=== PATIENT | male | born 1955 | race Caucasian/White ===

== ENCOUNTER 2017-07-16 11:10 | Emergency (ER) | payer OTHER ==
[2017-07-16 12:26] LABS: Absolute Lymphocytes (CBC) 1.3 K/uL (0.7-4.9); Absolute Monocytes 0.7 K/uL (0.1-1.3); Absolute Neutrophil 6.9 K/uL (1.8-8.0); Basophils % 0.6 % (0-1.3); Eosinophils % 0.4 % (0-4.4); Hematocrit 41.9 % (39.6-49.0); Lymphocytes % 14.2 % (15.3-44.8); MCH 27.9 pg (27.0-35.0); MCV 84.7 fL (80-100); MPV 8.4 fL (7.6-11.3); Monocytes % 7.6 % (3.3-12.3); RBC Red Blood Cell Count 4.95 M/uL (4.33-5.43)
--- NOTE | 2017-07-16 12:54 | RAD REPORT ---
EXAM DESCRIPTION: VAS - Extremity Venous Uni Ltd - 07/16/2017 12:32 pm CLINICAL HISTORY: Leg swelling and edema. COMPARISON: None. FINDINGS: Right lower extremity venous system was interrogated with Doppler technique. Normal flow, compressibility and augmentation was noted. There is no DVT present. IMPRESSION: No evidence of right lower extremity deep venous thrombosis.
[2017-07-16 13:01] LABS: Potassium 4.3 mEq/L (3.6-5.0)
--- NOTE | 2017-07-16 14:20 | ER ---
Nurse's Notes [facility] Name: Maykel Sykes Age: 61 yrs Sex: Male : 1955 Arrival Date: 07/16/2017 Time: 11:17 Bed 28 Private MD: None, None Diagnosis: Cellulitis of right lower limb Presentation: 07/16 11:35 Presenting complaint: Patient states: RIGHT lower leg redness, pain, and swelling x 3 hb days. Transition of care: Urgent Care. Onset of symptoms was July 13, 2017. Initial Sepsis Screen: Does the patient meet any 2 criteria? No. Patient's initial sepsis screen is negative. Does the patient have a suspected source of infection? No. Patient's initial sepsis screen is negative. Care prior to arrival: None. 11:35 Method Of Arrival: Ambulatory hb 11:35 Acuity: MEHDI 3 hb Historical: - Allergies: 11:38 No Known Allergies; hb - Home Meds: 11:38 None [Active]; hb - PMHx: 11:38 None; hb - PSHx: 11:38 None; hb - Immunization history:: Adult Immunizations up to date. - Social history:: Smoking status: Patient/guardian denies using tobacco. - Family history:: not pertinent. - Hospitalizations: : No recent hospitalization is reported. Screenin:09 Abuse screen: Denies threats or abuse. Denies injuries from another. Nutritional aj screening: No deficits noted. Tuberculosis screening: No symptoms or risk factors identified. Fall Risk None identified. Assessment: 12:09 General: Appears in no apparent distress. comfortable, Behavior is calm, cooperative, aj appropriate for age. Pain: Complains of pain in right calf and medial aspect of right calf. Neuro: Level of Consciousness is awake, alert, obeys commands, Oriented to person, place, time, situation, Appropriate for age. Respiratory: Airway is patent Respiratory effort is even, unlabored, Respiratory pattern is regular, symmetrical. Derm: Skin is intact, is healthy with good turgor, Skin is pink, warm \T\ dry. normal, Redness and swelling to posterior and medial right lower leg. 14:40 Reassessment: Patient appears in no apparent distress at this time. No changes from aj previously documented assessment. Patient and/or family updated on plan of care and expected duration. Pain level reassessed. Patient is alert, oriented x 3, equal unlabored respirations, skin warm/dry/pink. Vital Signs: 11:37 BP 196 / 96; Pulse 87; Resp 16; Temp 98; Pulse Ox 100% on R/A; Weight 145.15 kg; Height hb 6 ft. (182.88 cm); Pain 2/10; 13:16 BP 134 / 83; Pulse 77; Resp 18; Pulse Ox 98% on R/A; aj 14:40 BP 138 / 66; Pulse 76; Resp 17; Pulse Ox 99% on R/A; aj 11:37 Body Mass Index 43.40 (145.15 kg, 182.88 cm) hb ED Course: 11:17 Patient arrived in ED. mr 11:17 None, None is Private Physician. mr 11:37 Triage completed. hb 11:38 Arm band placed on left wrist. hb 11:43 Morelia Aguilar RN is Primary Nurse. aj 11:43 Slava Dumont MD is Attending Physician. rn 12:09 Patient has correct armband on for positive identification. Placed in gown. Bed in low aj position. Call light in reach. Side rails up X 1. Pulse ox on. NIBP on. 12:09 Inserted saline lock: 20 gauge in left forearm, using aseptic technique. Blood aj collected. 12:12 Extremity Venous Uni Ltd US In Process Unspecified. EDMS 12:15 Note: us done port. hr 14:40 No provider procedures requiring assistance completed. IV discontinued, intact, aj bleeding controlled, No redness/swelling at site. Pressure dressing applied. Administered Medications: No medications were administered Outcome: 14:20 Discharge ordered by . rn 14:40 Discharged to home ambulatory. aj 14:40 Condition: good 14:40 Discharge instructions given to patient, Instructed on discharge instructions, follow up and referral plans. medication usage, Demonstrated understanding of instructions, follow-up care, medications, Prescriptions given X 2. 14:41 Patient left the ED. aj Signatures: Dispatcher [employer] EDMS Morelia Aguilar, Jessy Terrazas RN Roxanna Flores hr Slava Dumont MD MD rn Baxter, Heather, RN RN hb Corrections: (The following items were deleted from the chart) 12:11 12:09 Inserted saline lock: 20 gauge in left forearm, using aseptic technique. aj aj
--- NOTE | 2017-07-16 14:20 | EDPHYS ---
Physician Documentation [facility] Name: Maykel Sykes Age: 61 yrs Sex: Male : 1955 Arrival Date: 07/16/2017 Time: 11:17 Bed 28 Private MD: None, None ED Physician Slava Dumont HPI: 07/16 11:53 This 61 yrs old Male presents to ER via Ambulatory with complaints of Leg rn Swelling. 11:53 The patient presents with cellulitis of the right leg. Description: erythematous, rn swollen, warm. Onset: The symptoms/episode began/occurred 2 day(s) ago. Possible cause(s): unknown. Modifying factors: the symptoms are alleviated by nothing, the symptoms are aggravated by walking. The patient has not experienced similar symptoms in the past. The patient has not recently seen a physician. Historical: - Allergies: 11:38 No Known Allergies; hb - Home Meds: 11:38 None [Active]; hb - PMHx: 11:38 None; hb - PSHx: 11:38 None; hb - Immunization history:: Adult Immunizations up to date. - Social history:: Smoking status: Patient/guardian denies using tobacco. - Family history:: not pertinent. - Hospitalizations: : No recent hospitalization is reported. ROS: 11:53 Constitutional: + chills, no fever Eyes: Negative for injury, pain, redness, and international sales representative, Neck: Negative for injury, pain, and swelling, Cardiovascular: Negative for chest pain, palpitations, and edema, Respiratory: Negative for shortness of breath, cough, wheezing, and pleuritic chest pain, Abdomen/GI: Negative for abdominal pain, nausea, vomiting, diarrhea, and constipation, MS/Extremity: + mild swelling and redness to RLE Skin: + redness and warmth of RLE Neuro: Negative for headache, weakness, numbness, tingling, and seizure. Exam: 11:53 Constitutional: This is a well developed, well nourished patient who is awake, alert, rn and in no acute distress. Skin: + erythema and warmth of RLE with raised areas, no streaking, no fluctuance, isolated to right medial distal LE. MS/ Extremity: Pulses equal, no cyanosis. Neurovascular intact. Full, normal range of motion. RLE > circumference compared to LLE Vital Signs: 11:37 BP 196 / 96; Pulse 87; Resp 16; Temp 98; Pulse Ox 100% on R/A; Weight 145.15 kg; Height hb 6 ft. (182.88 cm); Pain 2/10; 13:16 BP 134 / 83; Pulse 77; Resp 18; Pulse Ox 98% on R/A; aj 14:40 BP 138 / 66; Pulse 76; Resp 17; Pulse Ox 99% on R/A; aj 11:37 Body Mass Index 43.40 (145.15 kg, 182.88 cm) hb MDM: 11:43 Patient medically screened. rn 14:19 Differential diagnosis: cellulitis. Data reviewed: vital signs, nurses notes, lab test rn result(s), radiologic studies, doppler, and as a result, I will discharge patient. Counseling: I had a detailed discussion with the patient and/or guardian regarding: the historical points, exam findings, and any diagnostic results supporting the discharge/admit diagnosis, lab results, radiology results, the need for outpatient follow up, to return to the emergency department if symptoms worsen or persist or if there are any questions or concerns that arise at home. Special discussion: I discussed with the patient/guardian in detail that at this point there is no indication for admission to the hospital. It is understood, however, that if the symptoms persist or worsen the patient needs to return immediately for re-evaluation. 07/16 11:53 Order name: CBC with Diff; Complete Time: 13:03 rn 07/16 11:53 Order name: Basic Metabolic Panel rn 07/16 11:53 Order name: IV Start; Complete Time: 12:12 rn 07/16 11:53 Order name: Procalcitonin; Complete Time: 13:26 rn 07/16 11:53 Order name: Extremity Venous Uni Ltd ; Complete Time: 13:03 rn 07/16 11:53 Order name: Blood Culture Adult (2) rn Administered Medications: No medications were administered Disposition: 07/16/17 14:20 Discharged to Home. Impression: Cellulitis of right lower limb. - Condition is Stable. - Discharge Instructions: Cellulitis. - Prescriptions for Keflex 500 mg Oral Capsule - take 1 capsule by ORAL route every 12 hours for 10 days; 20 capsule. Bactrim DS 800- 160 mg Oral Tablet - take 1 tablet by ORAL route every 12 hours for 10 days; 20 tablet. - Medication Reconciliation Form, Thank You Letter, Antibiotic Education, Prescription Opioid Use form. - Follow up: Private Physician; When: As needed; Reason: Recheck today's complaints, Re-evaluation by your physician. - Problem is new. - Symptoms have improved. Signatures: Dispatcher [employer] EDMorelia Mandel RN RN aj Nieto, Roman, MD MD rn Baxter, Heather, RN RN hb Corrections: (The following items were deleted from the chart) 14:41 14:20 07/16/2017 14:20 Discharged to Home. Impression: Cellulitis of right lower limb. aj Condition is Stable. Forms are Medication Reconciliation Form, Thank You Letter, Antibiotic Education, Prescription Opioid Use. Follow up: Private Physician; When: As needed; Reason: Recheck today's complaints, Re-evaluation by your physician. Problem is new. Symptoms have improved. rn
== END 2017-07-16 14:41 | disposition home or self-care (01) ==
LOC: ER 11:10
DX: L03.115 Cellulitis of right lower limb (principal)
CPT/HCPCS: 36415; 80048; 84145; 85025; 87040; 93971; 99284

== ENCOUNTER 2024-04-10 12:34 | Emergency (ER) | payer OTHER ==
--- NOTE | 2024-04-10 13:02 | ER ---
Nurse's Notes [facility] Name: Maykel Sykes Age: 68 yrs Sex: Male : 1955 Arrival Date: 04/10/2024 Time: 12:34 Bed DX3 Private MD: Diagnosis: Uvulitis Presentation: 04/10 13:06 Chief complaint: Patient states: sinus drainage down throat x 1 week. Patient states it me1 affects his speech and is causing difficulty swallowing. Coronavirus screen: Vaccine status: Patient reports receiving the 2nd dose of the covid vaccine. Ebola Screen: No symptoms or risks identified at this time. Initial Sepsis Screen: Does the patient meet any 2 criteria? No. Patient's initial sepsis screen is negative. Risk Assessment: Do you want to hurt yourself or someone else? Patient reports no desire to harm self or others. Onset of symptoms was April 03, 2024. 13:06 Method Of Arrival: Ambulatory tn1 13:06 Acuity: MEHDI 4 me1 13:24 Initial Sepsis Screen: Does the patient have a suspected source of infection? No. me1 Patient's initial sepsis screen is negative. Triage Assessment: 13:31 Respiratory: the patient has mild shortness of breath. me1 Historical: - Allergies: 13:08 No Known Allergies; me1 - Home Meds: 13:08 None [Active]; me1 - PMHx: 13:08 None; me1 - PSHx: 13:08 None; me1 - Immunization history:: Adult Immunizations up to date. - Infectious Disease History:: Denies. - Social history:: Smoking status: Patient denies any tobacco usage or history of. Screenin:[address] [facility] ED Fall Risk Assessment (Adult) History of falling in the last 3 months, me1 including since admission No falls in past 3 months (0 pts) Confusion or Disorientation No (0 pts) Intoxicated or Sedated No (0 pts) Impaired Gait No (0 pts) Mobility Assist Device Used No (0 pt) Altered Elimination No (0 pt) Score/Fall Risk Level 0 - 2 = Low Risk Maintained a safe environment, Provided non-skid footwear, Hourly rounding (assess needs \T\ fall precautionary measures) done. Abuse screen: Denies threats or abuse. Nutritional screening: No deficits noted. Tuberculosis screening: No symptoms or risk factors identified. Assessment: 13:25 General: Appears in no apparent distress. comfortable, obese, well groomed, well me1 developed, Behavior is calm, cooperative, appropriate for age, Reports sinus drainage down throat x 1 week. Patient states it affects his speech and is causing difficulty swallowing. Pain: Denies pain. Neuro: Level of Consciousness is awake, alert, obeys commands, Oriented to person, place, time, situation, Appropriate for age. Cardiovascular: Patient's skin is warm and dry. Cardiovascular: Rhythm is regular. Respiratory: Airway is patent Respiratory effort is even, unlabored, Respiratory pattern is regular, symmetrical, Breath sounds are clear. GI: No signs and/or symptoms were reported involving the gastrointestinal system. : No signs and/or symptoms were reported regarding the genitourinary system. EENT: Throat is pink Reports sinus drainage down throat x 1 week. Patient states it affects his speech and is causing difficulty swallowing. Derm: Skin is intact, is healthy with good turgor, Skin is pink, warm \T\ dry. Musculoskeletal: No signs and/or symptoms reported regarding the musculoskeletal system. Vital Signs: 13:06 BP 171 / 77; Pulse 66; Resp 17; Temp 98.2; Pulse Ox 96% ; Weight 135.17 kg; Height 6 me1 ft. 0 in. ; Pain 0/10; 13:27 BP 164 / 71; Pulse 65; Resp 16; Temp 98.3; Pulse Ox 98% ; me1 13:06 Body Mass Index 40.42 (135.17 kg, 182.88 cm) me1 13:06 Pain Scale: Adult me1 ED Course: 12:38 Patient arrived in ED. im 12:44 Andrea Joseph DO is Attending Physician. ms3 13:00 Triage completed. me1 13:01 Yvonne Osorio MD is Referral Physician. ms3 13:01 Luisa Bojorquez MD is Referral Physician. ms3 13:08 Arm band placed on Patient placed in waiting room. me1 13:21 Rosario Drew, DANNY is Primary Nurse. me1 13:25 Patient has correct armband on for positive identification. Provided Education on: POC. me1 Verbalized understanding.. 13:25 No provider procedures requiring assistance completed. Patient did not have IV access me1 during this emergency room visit. Administered Medications: 13:24 Drug: Dexamethasone IM 10 mg IM once Route: IM; Site: left deltoid; tn1 13:27 Follow up: Response: No adverse reaction me1 Medication: 13:25 VIS not applicable for this client. [facility] [place] Outcome: 13: Discharge ordered by . ms3 13:30 Discharged to home ambulatory, me1 13:30 Condition: stable 13:30 Discharge instructions given to patient, Instructed on discharge instructions, follow up and referral plans. medication usage, Demonstrated understanding of instructions, follow-up care, medications, Prescriptions given X 1, 13:31 Patient left the ED. [facility] Signatures: Andrea Joseph DO DO ms3 Jennifer Luna Michelle, RN RN me1 Corrections: (The following items were deleted from the chart) 13:02 13: Arm band placed on Patient placed in an exam room, [place] [id number] 13: 12:59 Chief complaint: Patient states: c/o headache with blurry vision left eye since tn1 Sunday. Pain 8/10 [facility] 13: 12:59 Coronavirus screen: Vaccine status: Patient reports being unvaccinated. [place] [id number] 13: 12:59 Ebola Screen: No symptoms or risks identified at this time. [place] [id number] 13: 12:59 Initial Sepsis Screen: Does the patient meet any 2 criteria? No. Patient's [facility] initial sepsis screen is negative. Does the patient have a suspected source of infection? No. Patient's initial sepsis screen is negative. [facility] 13: 12:59 Risk Assessment: Do you want to hurt yourself or someone else? Patient reports no [facility] desire to harm self or others. [facility] 13: 12:59 Onset of symptoms was April 08, 2024 [place] [id number] 13: 12:59 Method Of Arrival: Ambulatory [place] [id number] 13: 12:59 Pulse 68bpm; Resp 16bpm; Pulse Ox 100%; Temp 98.4F; 100.7 kg; Height 6 ft.; BMI: tn1 30.1; Pain 8/10, Adult; [facility] 13: 12:59 Acuity: MEHDI 3 [place] [id number] 13:01 Allergies: Naproxen Sodium; [place] [id number] 13:01 PMHx: None; [place] [id number] : 13:01 PSHx: clavicle fracture; me1 me1 13:01 Immunization history: Adult Immunizations up to date, me1 me1 13:01 Infectious Disease History: Denies. me1 me1 13: 13:01 Social history: Smoking status: Patient reports the use of cigarette tobacco me1 products, smokes one-half pack cigarettes per day, me1 13:06 Chief complaint: Patient states: sinus drainage down throat x 1 week. Patient me1 states it affects his speech and is causing difficulty swallowing me1
--- NOTE | 2024-04-10 13:02 | EDPHYS ---
Physician Documentation [facility] Name: Maykel Sykes Age: 68 yrs Sex: Male : 1955 Arrival Date: 04/10/2024 Time: 12:34 Bed DX3 Private MD: ED Physician Andrea Joseph HPI: 04/10 13:04 This 68 yrs old Male presents to ER via Ambulatory with complaints of Difficulty ms3 Swallowing, Shortness Of Breath, Drainage - of sinus. 13:04 68-year-old male with no past medical history presents to the emergency department for ms3 sinus drainage that is been ongoing since COVRI. Patient states that has become worse over the last week. He denies nausea, vomiting, fevers, chills. Patient denies pain. Patient states it feels as if food is getting stuck in the mucus in the back of his throat.. Historical: - Allergies: 13:08 No Known Allergies; me1 - Home Meds: 13:08 None [Active]; me1 - PMHx: 13:08 None; me1 - PSHx: 13:08 None; me1 - Immunization history:: Adult Immunizations up to date. - Infectious Disease History:: Denies. - Social history:: Smoking status: Patient denies any tobacco usage or history of. ROS: 13:04 Constitutional: Negative for fever, and chills. Cardiovascular: Negative for chest ms3 pain, and palpitations. Respiratory: Negative for shortness of breath, cough, wheezing, and pleuritic chest pain, Abdomen/GI: Negative for abdominal pain, nausea, vomiting, diarrhea, and constipation, MS/Extremity: Negative for injury and deformity, 13:04 ENT: Positive for sinus congestion, Exam: 13:04 Constitutional: This is a well developed, well nourished patient who is awake, alert, ms3 and in no acute distress. Cardiovascular: Regular rate and rhythm with a normal S1 and S2. No gallops, murmurs, or rubs. Normal PMI, no JVD. No pulse deficits. Respiratory: Lungs have equal breath sounds bilaterally, clear to auscultation and percussion. No rales, rhonchi or wheezes noted. No increased work of breathing, no retractions or nasal flaring. Abdomen/GI: Soft, non-tender, with normal bowel sounds. No distension or tympany. No guarding or rebound. No evidence of tenderness throughout. Skin: Warm, dry with normal turgor. Normal color with no rashes, no lesions, and no evidence of cellulitis. 13:04 ENT: Posterior pharynx: Airway: normal, no evidence of obstruction, Uvula: edematous, erythema, erythema, that is moderate, exudate, is not appreciated, peritonsillar mass, is not appreciated, Vital Signs: 13:06 BP 171 / 77; Pulse 66; Resp 17; Temp 98.2; Pulse Ox 96% ; Weight 135.17 kg; Height 6 me1 ft. 0 in. ; Pain 0/10; 13:27 BP 164 / 71; Pulse 65; Resp 16; Temp 98.3; Pulse Ox 98% ; me1 13:06 Body Mass Index 40.42 (135.17 kg, 182.88 cm) me1 13:06 Pain Scale: Adult me1 MDM: 13:00 Medical Screening Exam initiated ms3 13:04 Differential diagnosis: upper respiratory infection, uvulitis, viral syndrome. Data ms3 reviewed: vital signs, nurses notes, and as a result, I will discharge patient. I considered the following discharge prescriptions or medication management in the emergency department Medications were administered in the Emergency Department. See MAR. Historians other than the Patient: Spouse/Significant Other: Patient's . Counseling: I had a detailed discussion with the patient and/or guardian regarding the historical points, exam findings, and any diagnostic results supporting the discharge/admit diagnosis, the need for outpatient follow up, to return to the emergency department if symptoms worsen or persist or if there are any questions or concerns that arise at home. Special discussion: I discussed with the patient/guardian in detail that at this point there is no indication for admission to the hospital. It is understood, however, that if the symptoms persist or worsen the patient needs to return immediately for re-evaluation. ED course: Discussed physical exam findings with patient and his . Patient given Decadron in the emergency department. Patient given prescription for amoxicillin for uvulitis. Patient to follow-up with Dr. Bojorquez or Dr. Osorio in 2 to 3 days. Patient understands agrees with plan. All questions were answered. Patient is alert and orient x 4, no apparent distress, nontoxic-appearing, speaking full sentences. Return precautions discussed include worsening symptoms, or any other concerns.. Administered Medications: 13:24 Drug: Dexamethasone IM 10 mg IM once Route: IM; Site: left deltoid; me1 13:27 Follow up: Response: No adverse reaction me1 Disposition Summary: 04/10/24 13:01 Discharge Ordered Notes: Location: Home ms3 Condition: Stable ms3 Diagnosis - Uvulitis ms3 Followup: ms3 - With: Yvonne Osorio MD - When: 2 - 3 days - Reason: Recheck today's complaints Followup: ms3 - With: Luisa Bojorquez MD - When: 2 - 3 days - Reason: Recheck today's complaints Discharge Instructions: - Discharge Summary Sheet ms3 - Uvulitis ms3 Forms: - Medication Reconciliation Form ms3 - Antibiotic Education ms3 - Prescription Opioid Use ms3 - Patient Portal Instructions ms3 - Leadership Thank You Letter ms3 Prescriptions: - amoxicillin 500 mg Oral capsule - take 1 capsule ORAL route every 12 hours; 14 capsule; Refills: 0, Product ms3 Selection Permitted Signatures: Andrea Joseph DO DO ms3 Rosario Drew RN RN me1 Corrections: (The following items were deleted from the chart) 13:03 13:01 Allergies: Naproxen Sodium; me1 me1 13:03 13:01 PMHx: None; me1 me1 13:03 13:01 PSHx: clavicle fracture; me1 me1 13:03 13:01 Immunization history: Adult Immunizations up to date, me1 me1 13:03 13:01 Infectious Disease History: Denies. me1 me1 13:03 13:01 Social history: Smoking status: Patient reports the use of cigarette tobacco me1 products, smokes one-half pack cigarettes per day, me1
[2024-04-10] MEDS ORDERED: dexAMETHasone 10 MG/ML VIAL ONE (13:22)
[2024-04-10 13:36] VITALS: BP 164/71; TEMP 98.3; O2SAT 98
== END 2024-04-10 13:31 | disposition home or self-care (01) ==
LOC: ER 12:34
DX: K12.2 Cellulitis and abscess of mouth (principal)
CPT/HCPCS: 96372; 99284; J1100

== ENCOUNTER 2024-04-11 15:44 | Emergency (ER) | payer OTHER ==
[2024-04-11 17:03] LABS: Absolute Basophils 0.1 K/uL (0-0.5); Absolute Lymphocytes (CBC) 1.8 K/uL (0.7-4.9); Absolute Monocytes 0.7 K/uL (0.1-1.3); Absolute Neutrophil 9.1 K/uL (1.8-8.0); Basophils % 0.7 % (0-1.3); Eosinophils % 0.2 % (0-4.4); Hematocrit 41.3 % (39.6-49.0); Hemoglobin 14.5 g/dL (13.6-17.9); Lymphocytes % 15.6 % (15.3-44.8); MCH 29.5 pg (27.0-35.0); MCHC 35.1 g/dL (32.0-36.0); MCV 83.9 fL (80-100); MPV 7.9 fL (7.6-11.3); Monocytes % 6.2 % (3.3-12.3); Neutrophils % 77.3 % (41.7-73.7); Platelets 245 thou/uL (152-406); RBC Red Blood Cell Count 4.93 M/uL (4.33-5.43); Red Cell Distribution Width 13.7 % (12.1-15.2)
[2024-04-11] MEDS ORDERED: CEFTRIAXONE 2000 MG/VIAL ONE (17:18)
[2024-04-11] MEDS ORDERED: MAGNES/ALUMIN/SIMET 30ML UCUP ONE (17:18)
[2024-04-11] MEDS ORDERED: dexAMETHasone 10 MG/ML VIAL ONE ×2 (17:18→19:07)
[2024-04-11] MEDS ORDERED: NA CHLORIDE 0.9% 100 ML ONE (17:19)
[2024-04-11] MEDS ORDERED: CLINDAMYCIN 900MG/D5W 900 MG/50 ML IVPB IV ONE (17:19)
[2024-04-11] MEDS ORDERED: NA CHLORIDE 0.9% 1,000 ML ONE (17:19)
[2024-04-11] MEDS ORDERED: FAMOTIDINE 20 MG/2 ML VIAL IV ONE (17:19)
[2024-04-11] MEDS ORDERED: LIDOCAINE VISCOUS 2% 10ML ORAL SOLN ONE (17:19)
[2024-04-11 17:20] LABS: Albumin 3.9 g/dL (3.4-5.0); Anion Gap 8.6 mEq/L (5.0-15.0); Bilirubin Total 0.6 mg/dL (0.2-1.0); Globulin 4.1 g/dL (2.3-3.5); Potassium 3.6 mEq/L (3.5-5.1)
[2024-04-11 17:24] LABS: SARS-CoV-2 Antigen CONTROL BLUE LINE VIS/BG OK; SARS-CoV-2 Antigen Rapid Res Negative (Negative)
[2024-04-11 17:39] LABS: Monoscreen NEG (NEG)
--- NOTE | 2024-04-11 17:51 | RAD REPORT ---
Procedure: Chest Pa And Lat (2 Views) HISTORY: Cough COMPARISON: none FINDINGS: The lungs appear clear of acute infiltrate. No significant pleural effusion noted. The heart is normal size. IMPRESSION: No acute abnormality is displayed.
--- NOTE | 2024-04-11 17:59 | RAD REPORT ---
EXAM: Soft Tissue Neck W/Contr INDICATION: Neck pain. Neck swelling TECHNIQUE: Helical CT examination of the neck orll212 cc Isovue-300 IV contrast. Sagittal and coronal reformations were generated. This exam was performed according to our departmental dose-optimization program, which includes automated exposure control, adjustment of the mA and/or kV according to patient size and/or use of iterative reconstruction technique. COMPARISON: None. FINDINGS: Mild enlargement of the uvula. No abscess seen. The remainder of the pharynx, larynx and subglottic trachea are unremarkable Parotid, submandibular and thyroid glands appear normal. No lymphadenopathy seen. No fluid within the visualized sinuses/mastoids. IMPRESSION: Mild enlargement of the uvula may indicate mild inflammation
--- NOTE | 2024-04-11 18:23 | EDPHYS ---
Physician Documentation [facility] Name: Maykel Sykes Age: 68 yrs Sex: Male : 1955 Arrival Date: 04/11/2024 Time: 15:44 Bed 6 Private MD: ED Physician Aravind Chaney HPI: 04/11 16:28 This 68 yrs old Male presents to ER via Ambulatory with complaints of Sinus sylvain problem, Difficulty Swallowing. 16:28 The patient presents with sore throat. The patient describes throat pain as burning. sylvain Severity of symptoms: At their worst the symptoms were mild, in the emergency department the symptoms are unchanged. Historical: - Allergies: 16:03 No Known Allergies; cm10 - Home Meds: 16:03 None [Active]; cm10 - PMHx: 16:03 Sleep apnea; cm10 - PSHx: 16:03 None; cm10 - Immunization history:: Adult Immunizations up to date. - Infectious Disease History:: Denies. - Social history:: Smoking status: unknown. ROS: 16:41 Constitutional: Negative for fever, chills, and weight loss, Eyes: Negative for injury, sylvain pain, redness, and discharge, Neck: Negative for injury, pain, and swelling, Cardiovascular: Negative for chest pain, palpitations, and edema, Abdomen/GI: Negative for abdominal pain, nausea, vomiting, diarrhea, and constipation, Back: Negative for injury and pain, : Negative for injury, bleeding, discharge, and swelling, MS/Extremity: Negative for injury and deformity, Skin: Negative for injury, rash, and discoloration, Neuro: Negative for headache, weakness, numbness, tingling, and seizure, Psych: Negative for depression, anxiety, suicide ideation, homicidal ideation, and hallucinations, Allergy/Immunology: Negative for hives, rash, and allergies, Endocrine: Negative for neck swelling, polydipsia, polyuria, polyphagia, and marked weight changes, Hematologic/Lymphatic: Negative for swollen nodes, abnormal bleeding, and unusual bruising, 16:41 ENT: Positive for nasal discharge, rhinorrhea, sinus congestion, sore throat, Exam: 16:41 Constitutional: This is a well developed, well nourished patient who is awake, alert, sylvain and in no acute distress. Head/Face: Normocephalic, atraumatic. Eyes: Pupils equal round and reactive to light, extra-ocular motions intact. Lids and lashes normal. Conjunctiva and sclera are non-icteric and not injected. Cornea within normal limits. Periorbital areas with no swelling, redness, or edema. Neck: Trachea midline, no thyromegaly or masses palpated, and no cervical lymphadenopathy. Supple, full range of motion without nuchal rigidity, or vertebral point tenderness. No Meningismus. Chest/axilla: Normal chest wall appearance and motion. Nontender with no deformity. No lesions are appreciated. Cardiovascular: Regular rate and rhythm with a normal S1 and S2. No gallops, murmurs, or rubs. Normal PMI, no JVD. No pulse deficits. Respiratory: Lungs have equal breath sounds bilaterally, clear to auscultation and percussion. No rales, rhonchi or wheezes noted. No increased work of breathing, no retractions or nasal flaring. Abdomen/GI: Soft, non-tender, with normal bowel sounds. No distension or tympany. No guarding or rebound. No evidence of tenderness throughout. Back: No spinal tenderness. No costovertebral tenderness. Full range of motion. Skin: Warm, dry with normal turgor. Normal color with no rashes, no lesions, and no evidence of cellulitis. MS/ Extremity: Pulses equal, no cyanosis. Neurovascular intact. Full, normal range of motion., bilateral aka Neuro: Awake and alert, GCS 15, oriented to person, place, time, and situation. Cranial nerves II-XII grossly intact. Motor strength 5/5 in all extremities. Sensory grossly intact. Cerebellar exam normal. Normal gait. Psych: Awake, alert, with orientation to person, place and time. Behavior, mood, and affect are within normal limits. 16:41 ENT: Posterior pharynx: Airway: normal, no evidence of obstruction, Tonsils: bilaterally enlarged, with erythema, Uvula: edematous, erythema, swelling, that is mild, erythema, that is mild, Voice: is hoarse, Vital Signs: 16:01 BP 167 / 69; Pulse 71; Resp 18; Temp 98.3; Pulse Ox 96% on R/A; Weight 135.17 kg; cm10 Height 6 ft. 0 in. ; Pain 0/10; 17:31 BP 153 / 58; Pulse 64; Resp 16; Pulse Ox 99% on R/A; ap3 19:20 BP 139 / 100; Pulse 68; Resp 17; Pulse Ox 97% ; jj7 20:20 BP 149 / 62; Pulse 72; Resp 18; Temp 98.4; Pulse Ox 95% ; Pain 0/10; jj7 16:01 Body Mass Index 40.42 (135.17 kg, 182.88 cm) cm10 16:01 Pain Scale: Adult cm10 20:20 Pain Scale: Adult jj7 MDM: 15:55 Medical Screening Exam initiated sylvain 18:17 Differential diagnosis: Allergic rhinitis, apthous stomatitis, apthous ulcer, sylvain bronchitis, viral Infection, bacterial infection, URI, pneumonia UTI, cocksackie virus, echovirus infection, epiglottitis, erythema multiforme, gingivostomatitis, group A strep tonsillitis, herpes simplex virus, hydrops, influenza, laryngitis, cinthia's angina, lymphoma, mononucleosis, peritonsillar abscess chlamydia pharyngitis, neisseria gonorrheoeae pharangitis, pharyngitis, retropharyngeal abcess tonsillitis, tracheobronchitis, uvulitis. Differential Diagnosis altered mental status, sepsis, flu. Data reviewed: vital signs, nurses notes, lab test result(s), radiologic studies, CT scan, plain films. Consideration of Admission/Observation Escalation of care including admission/observation considered. I considered the following discharge prescriptions or medication management in the emergency department Medications were administered in the Emergency Department. See MAR. Independent interpretation of the following test(s) in the Emergency Department X-Ray: My interpretation is cxr , soft neck. Test considered but Not performed: Ultrasound no neck usg. Care significantly affected by the following chronic conditions: Obesity. 04/11 16:24 Order name: CBC with Diff; Complete Time: 17:38 [facility] 04/11 16:24 Order name: Comprehensive Metabolic Panel; Complete Time: 17:38 [facility] 04/11 16:24 Order name: [place] Screen Profile; Complete Time: 18:16 [facility] 04/11 16:24 Order name: Strep [facility] 04/11 16:24 Order name: Flu; Complete Time: 17:38 [facility] 04/11 16:24 Order name: SARS RAPID; Complete Time: 17:38 [facility] 04/11 17:28 Order name: Throat Culture [facility] 04/11 16:24 Order name: CT Soft Tissue Neck W/contr; Complete Time: 18:16 syvlain 04/11 16:42 Order name: Chest Pa And Lat (2 Views) XRAY; Complete Time: 18:16 sylvain 04/11 18:17 Order name: PO challenge; Complete Time: 18:38 sylvain Administered Medications: 17:28 Drug: NS 0.9% IV 1000 ml IV at 1 bolus Per protocol; to be given as a bolus over 60 ap3 minutes Route: IV; Rate: 1 bolus; Site: left antecubital; 19:25 Follow up: IV Status: Completed infusion jj7 17:28 Drug: Decadron - Dexamethasone IVP 10 mg IVP once Route: IVP; Site: left antecubital; ap3 19:25 Follow up: Response: Marked relief of symptoms jj7 17:28 Drug: Rocephin IV 2 grams IV at per protocol once; Given slow IV push per pharmarcy ap3 instructions Route: IV; Rate: per protocol; Site: left antecubital; 19:25 Follow up: IV Status: Completed infusion jj7 17:28 Drug: Famotidine IVP 40 mg IVP once; dilute with 10 mL 0.9% NaCl; give over 2 minutes ap3 Route: IVP; Site: left antecubital; 20:22 Follow up: Response: No adverse reaction jj7 17:28 Drug: GI Cocktail without - (Maalox PO 30 ml, Lidocaine Mucous Membrane 2 % 15 ap3 ml) PO once Route: PO; 20:21 Follow up: Response: No adverse reaction jj7 19:25 Drug: Clindamycin IVPB 900 mg IVPB once over 30 mins; (mix in 50 mL) Route: IVPB; jj7 Infused Over: 30 mins; Site: left antecubital; 20:05 Follow up: IV Status: Completed infusion jj7 19:25 Drug: Decadron - Dexamethasone IVP 10 mg IVP once Route: IVP; Site: left antecubital; jj7 20:21 Follow up: Response: Marked relief of symptoms jj7 Disposition Summary: 04/11/24 18:22 Discharge Ordered Notes: Location: Home sylvain Problem: new sylvain Symptoms: have improved sylvain Condition: Stable sylvain Diagnosis - Acute pharyngitis, unspecified - UVULITIS sylvain Followup: sylvain - With: Private Physician - When: 2 - 3 days - Reason: Recheck today's complaints, Continuance of care, Re-evaluation by your physician Followup: sylvain - With: Yvonne Osorio MD - When: 2 - 3 days - Reason: Recheck today's complaints, Re-evaluation by your physician Discharge Instructions: - Discharge Summary Sheet sylvain - Pharyngitis sylvain - Sore Throat sylvain - Upper Respiratory Infection, Adult sylvain - Upper Respiratory Infection, Adult, [id number] sylvain - Pharyngitis, [id number] [facility] Forms: - Medication Reconciliation Form [facility] - Antibiotic Education sylvain - Prescription Opioid Use [facility] - Patient Portal Instructions [facility] - Leadership Thank You Letter [facility] Prescriptions: - dexamethasone 4 mg Oral tablet - take 1 tablet ORAL route once daily BEGIN 04/12/24; 4 tablet; Refills: 0, Product [facility] Selection Permitted - Clindamycin HCl 300 mg Oral Capsule - take 1 capsule ORAL route every 6 hours for 10 days; 40 capsule; Refills: 0, [facility] Product Selection Permitted - Kayli-D 12 Hour 60-120 mg Oral Tablet Sustained Release 12 hr - take 1 tablet ORAL route every 12 hours As needed; 20 tablet; Refills: 0, [facility] Product Selection Permitted - Tessalon Perles 100 mg Oral capsule - take 2 capsule ORAL route every 8 hours As needed; 30 capsule; Refills: 0, [facility] Product Selection Permitted Signatures: Dispatcher [employer] Aravidn Goldstein MD MD cha Prokisch, Amanda RN RN ap3 Shashank Elizalde RN RN jjRabia Nix RN RN cm10 Corrections: (The following items were deleted from the chart) 16:31 16:03 Infectious Disease History: Denies. cm10 [facility] 16:31 16:28 Eyes: Negative for injury, pain, redness, and discharge, Neck: Negative for [facility] injury, pain, and swelling, Cardiovascular: Negative for chest pain, palpitations, and edema, Abdomen/GI: Negative for abdominal pain, nausea, vomiting, diarrhea, and constipation, Back: Negative for injury and pain, : Negative for injury, bleeding, discharge, and swelling, MS/Extremity: Negative for injury and deformity, Skin: Negative for injury, rash, and discoloration, Neuro: Negative for headache, weakness, numbness, tingling, and seizure, [facility] : 16:28 Constitutional: Positive for body aches, chills, fever, malaise, [facility] : 16:28 ENT: Positive for rhinorrhea, sore throat, [facility] : 16:30 Constitutional: This is a well developed, well nourished patient who is awake, sylvain alert, and in no acute distress. Head/Face: Normocephalic, atraumatic. Eyes: Pupils equal round and reactive to light, extra-ocular motions intact. Lids and lashes normal. Conjunctiva and sclera are non-icteric and not injected. Cornea within normal limits. Periorbital areas with no swelling, redness, or edema. Neck: Trachea midline, no thyromegaly or masses palpated, and no cervical lymphadenopathy. Supple, full range of motion without nuchal rigidity, or vertebral point tenderness. No Meningismus. Chest/axilla: Normal chest wall appearance and motion. Nontender with no deformity. No lesions are appreciated. Cardiovascular: Regular rate and rhythm with a normal S1 and S2. No gallops, murmurs, or rubs. Normal PMI, no JVD. No pulse deficits. Respiratory: Lungs have equal breath sounds bilaterally, clear to auscultation and percussion. No rales, rhonchi or wheezes noted. No increased work of breathing, no retractions or nasal flaring. Abdomen/GI: Soft, non-tender, with normal bowel sounds. No distension or tympany. No guarding or rebound. No evidence of tenderness throughout. Back: No spinal tenderness. No costovertebral tenderness. Full range of motion. Male : Normal genitalia with no discharge or lesions. MS/ Extremity: Pulses equal, no cyanosis. Neurovascular intact. Full, normal range of motion., bilateral aka Neuro: Awake and alert, GCS 15, oriented to person, place, time, and situation. Cranial nerves II-XII grossly intact. Motor strength 5/5 in all extremities. Sensory grossly intact. Cerebellar exam normal. Normal gait. Psych: Awake, alert, with orientation to person, place and time. Behavior, mood, and affect are within normal limits. [facility]
--- NOTE | 2024-04-11 18:23 | ER ---
Nurse's Notes [facility] Name: Maykel Sykes Age: 68 yrs Sex: Male : 1955 Arrival Date: 04/11/2024 Time: 15:44 Bed 6 Private MD: Diagnosis: Acute pharyngitis, unspecified-UVULITIS Presentation: 04/11 16:01 Chief complaint: Patient states: Diagnosed with Uvulitis last night and states that he cm10 feels like he is not getting any better. Pt reports receiving a steroid shot yesterday and placed on Antibiotics. Coronavirus screen: Client denies travel out of the [place] in the last 14 days. Ebola Screen: Patient denies travel to an Ebola-affected area in the 21 days before illness onset. Initial Sepsis Screen: Does the patient meet any 2 criteria? No. Patient's initial sepsis screen is negative. Does the patient have a suspected source of infection? No. Patient's initial sepsis screen is negative. Risk Assessment: Do you want to hurt yourself or someone else? Patient reports no desire to harm self or others. Onset of symptoms was April 11, 2024. 16:01 Method Of Arrival: Ambulatory cm10 16:01 Acuity: MEHDI 3 cm10 Triage Assessment: 16:03 General: Appears in no apparent distress. comfortable, Behavior is calm, cooperative. cm10 Pain: Denies pain. EENT: Uvula enlarged.. Neuro: No deficits noted. Level of Consciousness is awake, alert, obeys commands, Oriented to person, place, time, situation, Appropriate for age. Respiratory: No deficits noted. Airway is patent Respiratory effort is even, unlabored, Respiratory pattern is regular, symmetrical. Historical: - Allergies: 16:03 No Known Allergies; cm10 - Home Meds: 16:03 None [Active]; cm10 - PMHx: 16:03 Sleep apnea; cm10 - PSHx: 16:03 None; cm10 - Immunization history:: Adult Immunizations up to date. - Infectious Disease History:: Denies. - Social history:: Smoking status: unknown. Screenin:[facility] ED Fall Risk Assessment (Adult) History of falling in the last 3 months, ap3 including since admission No falls in past 3 months (0 pts) Confusion or Disorientation No (0 pts) Intoxicated or Sedated No (0 pts) Impaired Gait No (0 pts) Mobility Assist Device Used No (0 pt) Altered Elimination No (0 pt) Score/Fall Risk Level 0 - 2 = Low Risk Oriented to surroundings, Maintained a safe environment, Educated pt \T\ family on fall prevention, incl call for assistance when getting out of bed. Abuse screen: Denies threats or abuse. Denies injuries from another. Nutritional screening: No deficits noted. Tuberculosis screening: No symptoms or risk factors identified. Assessment: 17:30 General: Appears in no apparent distress. Behavior is calm, cooperative. Pain: Denies ap3 pain. Neuro: Level of Consciousness is awake, alert, obeys commands, Oriented to person, place, time, situation. Cardiovascular: Patient's skin is warm and dry. Respiratory: Respiratory effort is even, unlabored, Respiratory pattern is regular, symmetrical. GI: No signs and/or symptoms were reported involving the gastrointestinal system. : No signs and/or symptoms were reported regarding the genitourinary system. EENT: Reports difficulty swallowing. Derm: Skin is pink, warm \T\ dry. Musculoskeletal: No signs and/or symptoms reported regarding the musculoskeletal system. 19:10 Reassessment: ASSUMED CARE OF PT. PT SITTING IN BED. STATES HE IS UNCOMFORTABLE BECAUSE jj7 HE IS CREATING TO MUCH MUCUS IN HIS THROAT. STEROID HELPED WITH SWELLING BUT FEELS LIKE HE CAN'T BREATH OUT HIS MOUTH, BUT CAN BREATH OUT HIS NOSE NORMALLY. General: Appears in no apparent distress. uncomfortable, Behavior is cooperative, agitated. Pain: Denies pain. Vital Signs: 16:01 BP 167 / 69; Pulse 71; Resp 18; Temp 98.3; Pulse Ox 96% on R/A; Weight 135.17 kg; cm10 Height 6 ft. 0 in. ; Pain 0/10; 17:31 BP 153 / 58; Pulse 64; Resp 16; Pulse Ox 99% on R/A; ap3 19:20 BP 139 / 100; Pulse 68; Resp 17; Pulse Ox 97% ; jj7 20:20 BP 149 / 62; Pulse 72; Resp 18; Temp 98.4; Pulse Ox 95% ; Pain 0/10; jj7 16:01 Body Mass Index 40.42 (135.17 kg, 182.88 cm) cm10 16:01 Pain Scale: Adult cm10 20:20 Pain Scale: Adult jj7 ED Course: 15:46 Patient arrived in ED. im 15:55 Aravind Chaney MD is Attending Physician. sylvain 16:03 Triage completed. cm10 16:03 Arm band placed on right wrist. Patient placed in an exam room, on a stretcher. cm10 16:26 Nany Lewis, RN is Primary Nurse. hb 16:52 Radiology exam delayed due to lab results not completed at this time. (BUN/Creatinine) nj IV insertion attempt and/or patient not having appropriate IV at this time. 17:00 Inserted saline lock: 20 gauge in left antecubital area, using aseptic technique. Blood ap3 collected. Flushed with 10 mL NS. 17:21 Chest Pa And Lat (2 Views) XRAY In Process Unspecified. EDMS 17:30 Patient has correct armband on for positive identification. Provided Education on: ap3 tests, result times, medications . 17:30 No provider procedures requiring assistance completed. ap3 17:48 CT Soft Tissue Neck W/contr In Process Unspecified. EDMS 18:19 Yvonne Osorio MD is Referral Physician. [facility] 20:20 IV discontinued, intact, bleeding controlled, No redness/swelling at site. Pressure jj7 dressing applied. Administered Medications: 17:28 Drug: NS 0.9% IV 1000 ml IV at 1 bolus Per protocol; to be given as a bolus over 60 ap3 minutes Route: IV; Rate: 1 bolus; Site: left antecubital; 19:25 Follow up: IV Status: Completed infusion j7 17:28 Drug: Decadron - Dexamethasone IVP 10 mg IVP once Route: IVP; Site: left antecubital; ap3 19:25 Follow up: Response: Marked relief of symptoms j7 17:28 Drug: Rocephin IV 2 grams IV at per protocol once; Given slow IV push per pharmarcy ap3 instructions Route: IV; Rate: per protocol; Site: left antecubital; 19:25 Follow up: IV Status: Completed infusion j7 17:28 Drug: Famotidine IVP 40 mg IVP once; dilute with 10 mL 0.9% NaCl; give over 2 minutes ap3 Route: IVP; Site: left antecubital; 20:22 Follow up: Response: No adverse reaction jj7 17:28 Drug: GI Cocktail without - (Maalox PO 30 ml, Lidocaine Mucous Membrane 2 % 15 ap3 ml) PO once Route: PO; 20:21 Follow up: Response: No adverse reaction jj7 19:25 Drug: Clindamycin IVPB 900 mg IVPB once over 30 mins; (mix in 50 mL) Route: IVPB; jj7 Infused Over: 30 mins; Site: left antecubital; 20:05 Follow up: IV Status: Completed infusion jj7 19:25 Drug: Decadron - Dexamethasone IVP 10 mg IVP once Route: IVP; Site: left antecubital; jj7 20:21 Follow up: Response: Marked relief of symptoms jj7 Medication: 17:30 VIS not applicable for this client. ap3 Outcome: 18:22 Discharge ordered by MD. narayan 20:19 Discharged to home ambulatory, with family, jj7 20:19 Condition: good 20:19 Discharge instructions given to patient, family, Instructed on discharge instructions, follow up and referral plans. medication usage, Demonstrated understanding of instructions, follow-up care, medications, Prescriptions given X 4, 20:21 Patient left the ED. jj7 Signatures: Dispatcher [employer] EDMS Aravind Chaney MD MD cha Baxter, Heather, RN RN Kentrell Saenz Amanda, RN RN ap3 Shashank Elizalde RN RN jj7 Jennifer Luna Clarissa, RN RN cm10 Corrections: (The following items were deleted from the chart) 16:03 16:01 Acuity: MEHDI 4 cm10 cm10 16:31 16:03 Infectious Disease History: Denies. cm10 [facility] 17:28 17:28 Clindamycin IVPB 900 mg IVPB in left antecubital over 30 mins ap3 ap3
[2024-04-11 20:48] VITALS: BP 149/62; TEMP 98.4; O2SAT 95
== END 2024-04-11 20:21 | disposition home or self-care (01) ==
LOC: ER 15:44
DX: K12.2 Cellulitis and abscess of mouth (principal); Z11.52 Encounter for screening for COVID-19
CPT/HCPCS: 96365; 96367; 87070; 85025; 36415; 86308; 87081; 80053; 87804 ×2; 70491; 71046; 96375; 99284; 96366; 87811; Q9967; J1100 ×2; J0696; J7030

== ENCOUNTER 2024-04-12 13:18 | Inpatient (IN) | payer OTHER ==
[2024-04-12] MEDS ORDERED: dexAMETHasone 10 MG/ML VIAL ONE (13:53)
[2024-04-12] MEDS ORDERED: DIPHENHYDRAMINE 50 MG/ML VIAL ONE (13:53)
[2024-04-12] MEDS ORDERED: EPINEPHRINE INH 0.5 ML VIAL IH ONE (13:53)
[2024-04-12 14:00] LABS: Absolute Basophils 0.1 K/uL (0-0.5); Absolute Lymphocytes (CBC) 1.2 K/uL (0.7-4.9); Absolute Monocytes 0.7 K/uL (0.1-1.3); Absolute Neutrophil 10.2 K/uL (1.8-8.0); Basophils % 0.7 % (0-1.3); Hematocrit 41.1 % (39.6-49.0); Hemoglobin 14.1 g/dL (13.6-17.9); Lymphocytes % 9.5 % (15.3-44.8); MCH 28.9 pg (27.0-35.0); MCHC 34.4 g/dL (32.0-36.0); MPV 8.4 fL (7.6-11.3); Monocytes % 5.5 % (3.3-12.3); Neutrophils % 84.3 % (41.7-73.7); Platelets 264 thou/uL (152-406); RBC Red Blood Cell Count 4.89 M/uL (4.33-5.43); Red Cell Distribution Width 13.9 % (12.1-15.2)
[2024-04-12 14:19] LABS: Anion Gap 9.8 mEq/L (5.0-15.0); Potassium 3.8 mEq/L (3.5-5.1)
--- NOTE | 2024-04-12 14:23 | ER ---
Nurse's Notes [facility] Name: Maykel Sykes Age: 68 yrs Sex: Male : 1955 Arrival Date: 04/12/2024 Time: 13:18 Bed 2 Private MD: Diagnosis: Uvular Swelling Presentation: 04/12 13:26 Chief complaint: Patient states: Cannot swallow pills prescribed. Throat swelling is ll1 not getting worse, no fever. Coronavirus screen: Client denies travel out of the [place] in the last 14 days. At this time, the client does not indicate any symptoms associated with coronavirus-19. Ebola Screen: Patient denies travel to an Ebola-affected area in the 21 days before illness onset. Initial Sepsis Screen: Does the patient meet any 2 criteria? No. Patient's initial sepsis screen is negative. Does the patient have a suspected source of infection? No. Patient's initial sepsis screen is negative. Risk Assessment: Do you want to hurt yourself or someone else? Patient reports no desire to harm self or others. Onset of symptoms was April 09, 2024. 13:26 Method Of Arrival: Ambulatory ll1 13:26 Acuity: MEHDI 4 ll1 Triage Assessment: 13:26 General: Appears in no apparent distress. Behavior is cooperative, appropriate for age, ll1 frustrated. Pain: Denies pain. EENT: Reports not being able to swallow pills. Historical: - Allergies: 13:25 No Known Allergies; ll1 - PMHx: 13:25 Sleep Apnea; ll1 - Immunization history:: Adult Immunizations up to date. - Infectious Disease History:: Denies. - Social history:: Smoking status: Patient denies any tobacco usage or history of. Screenin:55 [facility] ED Fall Risk Assessment (Adult) History of falling in the last 3 months, kc6 including since admission No falls in past 3 months (0 pts) Confusion or Disorientation No (0 pts) Intoxicated or Sedated No (0 pts) Impaired Gait No (0 pts) Mobility Assist Device Used No (0 pt) Altered Elimination No (0 pt) Score/Fall Risk Level 0 - 2 = Low Risk Oriented to surroundings, Maintained a safe environment, Educated pt \T\ family on fall prevention, incl call for assistance when getting out of bed. Abuse screen: Denies threats or abuse. Denies injuries from another. Nutritional screening: No deficits noted. Tuberculosis screening: No symptoms or risk factors identified. Assessment: 13:55 General: Appears in no apparent distress. comfortable, obese, well groomed, well kc6 developed, Behavior is calm, cooperative, appropriate for age. Pain: Denies pain. Neuro: Level of Consciousness is awake, alert, obeys commands, Oriented to person, place, time, situation, Appropriate for age. Cardiovascular: Denies chest pain, shortness of breath, Capillary refill < 3 seconds. Respiratory: Airway is patent Trachea midline Respiratory effort is even, unlabored, Respiratory pattern is regular, symmetrical, Breath sounds are clear bilaterally. GI: No signs and/or symptoms were reported involving the gastrointestinal system. : No signs and/or symptoms were reported regarding the genitourinary system. EENT: Throat is pink with gag reflex present, uvula appears swollen. Reports difficulty swallowing since x1 week Denies pain when swallowing. Derm: No signs and/or symptoms reported regarding the dermatologic system. Skin is intact, is healthy with good turgor, Skin is pink, warm \T\ dry. Musculoskeletal: No signs and/or symptoms reported regarding the musculoskeletal system. Circulation, motion, and sensation intact. Range of motion: intact in all extremities. 15:15 Reassessment: Patient appears in no apparent distress at this time. No changes from kc6 previously documented assessment. Patient and/or family updated on plan of care and expected duration. Pain level reassessed. Patient is alert, oriented x 3, equal unlabored respirations, skin warm/dry/pink. 16:53 Reassessment: Patient appears in no apparent distress at this time. No changes from kc6 previously documented assessment. Patient and/or family updated on plan of care and expected duration. Pain level reassessed. Patient is alert, oriented x 3, equal unlabored respirations, skin warm/dry/pink. Vital Signs: 13:26 BP 145 / 73; Pulse 66; Resp 17; Temp 97.5; Pulse Ox 96% on R/A; Weight 135.17 kg; ll1 Height 6 ft. 0 in. ; Pain 0/10; 15:15 BP 149 / 66; Pulse 65; Resp 15 S; Pulse Ox 99% on R/A; kc6 13:26 Body Mass Index 40.42 (135.17 kg, 182.88 cm) ll1 13:26 Pain Scale: Adult ll1 ED Course: 13:20 Patient arrived in ED. mr 13:25 Arm band placed on Patient placed in an exam room, on a stretcher. ll1 13:27 Triage completed. ll1 13:29 Ahsan Arnold MD is Attending Physician. ec2 13:32 Megan Ferguson, DANNY is Primary Nurse. kc6 13:54 Patient has correct armband on for positive identification. Bed in low position. Call kc6 light in reach. Side rails up X 1. Adult w/ patient. Pulse ox on. NIBP on. Door closed. Noise minimized. Lights dimmed. Pillow given. 13:54 Initial lab(s) drawn, by me, sent to lab. Missed attempt(s): 20 gauge in left forearm. kc6 Patient maintains SpO2 saturation greater than 95% on room air. 14:15 Inserted saline lock: 20 gauge in left forearm, using aseptic technique. Flushed with kc6 10 mL NS. 14:22 Christophe Hernándze MD is Hospitalizing Provider. ec2 19:04 No provider procedures requiring assistance completed. Patient admitted, IV remains in kc6 place. Administered Medications: 14:15 Drug: Racepinephrine Inhalation 0.5 ml Inhalation once Route: Inhalation; kc6 14:42 Follow up: Response: No adverse reaction kc6 14:15 Drug: diphenhydrAMINE IVP 25 mg IVP once Route: IVP; Site: left forearm; kc6 14:41 Follow up: Response: No adverse reaction kc6 14:15 Drug: Decadron - Dexamethasone IVP 10 mg IVP once Route: IVP; Site: left forearm; kc6 14:41 Follow up: Response: No adverse reaction kc6 14:41 Drug: Ampicillin-Sulbactam Sodium IVPB 3 grams IVPB once over 30 mins; (mix in 100 mL kc6 NS) Route: IVPB; Infused Over: 30 mins; Site: left forearm; 15:15 Follow up: Response: No adverse reaction; IV Status: Completed infusion; IV Intake: kc6 100ml Medication: 19:04 VIS not applicable for this client. kc6 Intake: 15:15 IV: 100ml; Total: 100ml. kc6 Outcome: 14:22 Decision to Hospitalize by Provider. ec2 19:04 Admitted to Med/surg accompanied by tech, via wheelchair, room 210, with chart, Report kc6 called to DANNY German 19:04 Condition: good 19:04 Instructed on the need for admit, 19:04 Patient left the ED. kc6 Signatures: Iwona Treviño, Reg Reg Adele Huacelestino, RN RN ll1 Megan Ferguson RN RN kc6 Ahsan Arnold MD MD ec2
--- NOTE | 2024-04-12 14:23 | EDPHYS ---
Physician Documentation [facility] Name: Maykel Sykes Age: 68 yrs Sex: Male : 1955 Arrival Date: 04/12/2024 Time: 13:18 Bed 2 Private MD: ED Physician Ahsan Arnold HPI: 04/12 13:35 This 68 yrs old Male presents to ER via Ambulatory with complaints of Throat ec2 swelling. 13:35 Patient arrives today for odynophagia, uvular swelling. She has been seen here twice in ec2 the past 2 days, was diagnosed with uvulitis, given steroids and antibiotics. Reports persistent odynophagia, reports difficulty with swallowing p.o.. Historical: - Allergies: 13:25 No Known Allergies; ll1 - PMHx: 13:25 Sleep Apnea; ll1 - Immunization history:: Adult Immunizations up to date. - Infectious Disease History:: Denies. - Social history:: Smoking status: Patient denies any tobacco usage or history of. ROS: 13:36 Constitutional: as per hpi ec2 Exam: 13:36 Constitutional: GEN: NAD Head: atraumatic Eyes: EOMI Ears: External ears are normal. ec2 Mouth: Isolated uvular swelling. CV: regular rate LUNGS: no respiratory distress ABD: non-distended SKIN: no evidence of rashes MSK: no evidence of trauma Vital Signs: 13:26 BP 145 / 73; Pulse 66; Resp 17; Temp 97.5; Pulse Ox 96% on R/A; Weight 135.17 kg; ll1 Height 6 ft. 0 in. ; Pain 0/10; 15:15 BP 149 / 66; Pulse 65; Resp 15 S; Pulse Ox 99% on R/A; kc6 13:26 Body Mass Index 40.42 (135.17 kg, 182.88 cm) ll1 13:26 Pain Scale: Adult ll1 MDM: 13:30 Medical Screening Exam initiated ec2 13:36 Data reviewed: vital signs, nurses notes. ED course: Patient arrives today for ec2 evaluation of uvular swelling. Examination as above. Will obtain lab work, give the patient additional Benadryl, steroids as well as racemic epinephrine. Ultimately feel patient would be appropriate for inpatient hospitalization given the patient's recurrent and refractory swelling.. 14:22 ED course: External records indicate patient had a CT soft tissue imaging that showed ec2 uvulitis. Chest x-ray that was negative. Patient without any stridor or woodiness of the submandibular space. Do not feel this to be indicated to reimage. Will admit for refractory edema differential diagnoses considered include uvulitis, deep space infection, Quincke's disease. 04/12 13:37 Order name: CBC with Diff; Complete Time: 14:23 ec2 04/12 13:37 Order name: BMP; Complete Time: 14:23 ec2 04/12 17:44 Order name: Urinalysis w/ reflexes EDMS 04/12 17:44 Order name: CBC with Automated Diff EDMS 04/12 17:44 Order name: CBC with Automated Diff EDMS 04/12 17:44 Order name: Comprehensive Metabolic Panel EDMS 04/12 17:44 Order name: Comprehensive Metabolic Panel EDMS 04/12 17:44 Order name: Magnesium EDMS 04/12 17:44 Order name: Magnesium EDMS 04/12 15:23 Order name: Soft Tissue Neck W/Contr EDMS 04/12 17:44 Order name: CONS Physician Consult EDMS 04/12 13:37 Order name: IV; Complete Time: 14:15 ec2 Administered Medications: 14:15 Drug: Racepinephrine Inhalation 0.5 ml Inhalation once Route: Inhalation; kc6 14:42 Follow up: Response: No adverse reaction kc6 14:15 Drug: diphenhydrAMINE IVP 25 mg IVP once Route: IVP; Site: left forearm; kc6 14:41 Follow up: Response: No adverse reaction kc6 14:15 Drug: Decadron - Dexamethasone IVP 10 mg IVP once Route: IVP; Site: left forearm; kc6 14:41 Follow up: Response: No adverse reaction kc6 14:41 Drug: Ampicillin-Sulbactam Sodium IVPB 3 grams IVPB once over 30 mins; (mix in 100 mL kc6 NS) Route: IVPB; Infused Over: 30 mins; Site: left forearm; 15:15 Follow up: Response: No adverse reaction; IV Status: Completed infusion; IV Intake: kc6 100ml Disposition Summary: 04/12/24 14:22 Hospitalization Ordered Notes: Hospitalization Status: Inpatient Admission ec2 Provider: Hernández, Mohammad ec2 Location: Telemetry/MedSurg (Inpatient) ec2 Condition: Stable ec2 Problem: an ongoing problem ec2 Symptoms: have improved ec2 Bed/Room Type: Standard ec2 Room Assignment: 210(04/12/24 18:09) em1 Diagnosis - Uvular Swelling ec2 Forms: - Medication Reconciliation Form ec2 - SBAR form ec2 - Leadership Thank You Letter ec2 Signatures: Dispatcher [employer] EDJames Rai em1 Alvina Olivas RN RN ll1 Megan Ferguson RN RN kc6 Ahsan Arnold MD MD ec2 Corrections: (The following items were deleted from the chart) 13:37 13:37 CBC+H.LAB.BRZ ordered. EDMS EDMS 13:37 13:37 BASIC METABOLIC PANEL+C.LAB.BRZ ordered. EDMS EDMS 18:09 14:22 ec2 em1
[2024-04-12] MEDS ORDERED: AMPICILLIN/SULBACTAM 3GM/VIAL ONE (14:34)
[2024-04-12] MEDS ORDERED: NA CHLORIDE 0.9% 100 ML ONE (14:34)
[2024-04-12] MEDS ORDERED: ONDANSETRON 4 MG/2 ML VIAL IV PRN (17:31)
--- NOTE | 2024-04-12 17:31 | P.HP ---
Certification for Inpatient Patient admitted to: Inpatient <Kendra Lange - Last Filed: 04/12/24 18:52> Patient History Date of Service: 04/12/24 Reason for admission: Uvular Swelling History of Present Illness: 68 year old male with past medical history of HTN, Sleep Apnea; presents to the emergency room of trouble swallowing. He reports being seen in ED twice for similar symptoms for throat swelling. He reports unable to swallow meds for allergic reaction. He reports being seen and diagnosed with uvulitis, given steroids and antibiotics. He reports being exposed to allergens and has symptoms since exposure. He denies any known allergens. He reports only tolerating liquids, unable to tolerate pills, or food. Ct of the neck shows Mild enlargement of the uvula may indicate mild inflammation. No reported stridor, shortness of breath, drooling, anxiety, or fever, cough, or chest pain. Plan to admit for Dysphagia, uvular swelling with ENT Dr Merino to consult, notified of admission and plan. - Past Medical/Surgical History -: Obstructive sleep apnea -: Hypertension -: Obesity - Social History Smoking Status: Never smoker Alcohol use: No CD- Drugs: No Caffeine use: Yes Place of Residence: Home <Kendra Lange - Last Filed: 04/12/24 18:52> Date of Service: 04/12/24 <Christophe Hernández - Last Filed: 04/14/24 04:52> Allergies No Known Allergies Allergy (Unverified 07/16/17 14:44) Review of Systems 10-point ROS is otherwise unremarkable <Art Langey - Last Filed: 04/12/24 18:52> Physical Examination - Physical Exam General: Alert, In no apparent distress, Oriented x3 HEENT: Atraumatic, Normocephalic, PERRLA, Other (+ Dysphagia, Mallenpati IV, no drooling) Respiratory: Clear to auscultation bilaterally, Normal air movement, Other (no stridor, or wheezing ) Cardiovascular: Normal pulses, Regular rate/rhythm, Normal S1 S2 Gastrointestinal: Normal bowel sounds, Soft and benign Musculoskeletal: No swelling, No contractures Integumentary: No breakdown, No significant lesion Neurological: Normal strength at 5/5 x4 extr, Other (abnormal speech) Lymphatics: No axilla or inguinal lymphadenopathy - Studies Laboratory Data (last 24 hrs) 04/12/24 04/12/24 13:49 13:49 WBC 12.10 H Hgb 14.1 Hct 41.1 Plt Count 264 Sodium 136 Potassium 3.8 BUN 19 H Creatinine 1.14 Glucose 113 H <Kendra Lange - Last Filed: 04/12/24 18:52> Assessment and Plan - Problems (Diagnosis) (1) Uvular swelling Current Visit: Yes Status: Acute (2) Odynophagia Current Visit: Yes Status: Acute (3) JOSE A (obstructive sleep apnea) Current Visit: Yes Status: Acute - Plan Assessment uvular swelling. odynophagia Obstructive sleep Obese ENT consult Notified of admission Steroids, Benadryl, Pepcid, as needed racemic epi antibiotics, Continuous pulse ox, 02 2L NC, CPAP at bedtime, Repeat CT of the neck Chest x-ray that was negative. BP 145 / 73; Pulse 66; Resp 17; Temp 97.5; Pulse Ox 96% on R/A; Weight 135.17 kg; Height 6 ft. 0 in. ; Pain 0/10 Full code DVT SCD Diet liquid Disposition Home independent prior Discharge Plan: Home - Advance Directives Does patient have a Living Will: No Does patient have a Durable POA for Healthcare: No - Code Status/Comfort Care Code Status: Full Code Critical Care: No Time Spent Managing Pts Care (In Minutes): 55 <Kendra Lange - Last Filed: 04/12/24 18:52> Date of Service: 04/12/24 Patient was seen and examined. Events of the last 24 hours have been noted. Spoke with with AGUILAR regarding patient's clinical picture after evaluating and examining the patient independently. I performed a substantial part of the MDM during this patient's care today. I personally made or approved the documented management plan and acknowledge its risk of complications. I agree with the findings and documentation provided in the AGUILAR's notes. Patient with mild swelling of the uvula. Continue with steroids and antibiotic therapy. ENT was consulted. <Christophe Hernández - Last Filed: 04/14/24 04:52>
[2024-04-12] MEDS ORDERED: EPINEPHRINE INH 0.5 ML VIAL IH PRN (17:56)
[2024-04-12] MEDS: FAMOTIDINE 20 MG/2 ML VIAL IV SCH (18:00)
[2024-04-12] MEDS: D5 0.9 NS 1,000 ML IV SCH ×2 (18:00→18:13)
[2024-04-12] MEDS ORDERED: D5 0.9 NS 1,000 ML IV ONE (18:04)
[2024-04-13] MEDS: dexAMETHasone 4 MG/ML VIAL IV SCH (00:03)
[2024-04-13 01:04] LABS: Specific Gravity 1.019 (1.005-1.030); Urine Bilirubin NEGATIVE (Negative); Urine Blood Negative (Negative); Urine Clarity Clear (Clear); Urine Color Light-Yellow (Yellow); Urine Glucose NEGATIVE (Negative); Urine Ketones 1+ (Negative); Urine Microscopic Reflex YN NO UMIC; Urine Nitrite NEGATIVE (Negative); Urine Protein NEGATIVE (Negative); Urine Urobilinogen Normal (Normal); Urine pH 5.5 (5.0-7.0)
[2024-04-13] MEDS: AMPICILLIN/SULBACT 3 GM in NA CHLORIDE 0.9% 100 ML IVPB SCH (01:39)
[2024-04-13 05:21] LABS: Absolute Lymphocytes (CBC) 1.2 K/uL (0.7-4.9); Absolute Monocytes 0.7 K/uL (0.1-1.3); Absolute Neutrophil 10.2 K/uL (1.8-8.0); Basophils % 0.3 % (0-1.3); Hematocrit 40.4 % (39.6-49.0); Hemoglobin 13.8 g/dL (13.6-17.9); Lymphocytes % 9.5 % (15.3-44.8); MCH 28.7 pg (27.0-35.0); MCHC 34.1 g/dL (32.0-36.0); MCV 84.2 fL (80-100); MPV 8.2 fL (7.6-11.3); Monocytes % 6.1 % (3.3-12.3); Neutrophils % 84.1 % (41.7-73.7); Platelets 245 thou/uL (152-406); RBC Red Blood Cell Count 4.79 M/uL (4.33-5.43); Red Cell Distribution Width 14.2 % (12.1-15.2)
[2024-04-13 05:40] LABS: Albumin 3.3 g/dL (3.4-5.0); Albumin/Globulin Ratio 0.8 (1.1-1.8); Anion Gap 7.7 mEq/L (5.0-15.0); Bilirubin Total 0.5 mg/dL (0.2-1.0); Magnesium 2.5 mg/dL (1.6-2.4); Potassium 4.7 mEq/L (3.5-5.1); Protein, Total 7.3 g/dL (6.4-8.2)
[2024-04-13] MEDS ORDERED: dexAMETHasone 10 MG/ML VIAL IV SCH (09:00)
--- NOTE | 2024-04-13 11:28 | RAD REPORT ---
EXAM: CT brain without contrast HISTORY: dysarthria COMPARISON: 04/11/2024 TECHNIQUE: Multiple contiguous axial images were obtained and a CT of the brain without contrast. Sag ittal and coronal reformats were performed. One or more of the following dose reduction techniques were used: Automated exposure control, adjust ment of the mA and/or kV according to patient size, and/or iterative reconstruction. FINDINGS: No evidence of hydrocephalus, intracranial hemorrhage, or extra-axial fluid collection. The brain is normal in morphology. No evidence of midline shift or areas of brain edema. The calvarium is intact. The visualized paranasal sinuses and mastoid air cells are essentially clear . IMPRESSION: No evidence of acute intracranial abnormality.
--- NOTE | 2024-04-13 11:31 | RAD REPORT ---
EXAM: Soft Tissue Neck W/Contr INDICATION: enlargement of the uvula Sagittal and coronal reformations were generated. This exam was performed according to our department al dose-optimization program, which includes automated exposure control, adjustment of the mA and/or kV according to patient size and/or use of iterative reconstruction technique. IV contrast was administered. COMPARISON: 04/11/2024 FINDINGS: Mucosal spaces: Nasopharynx, oropharynx, oral cavity, larynx and hypopharynx are normal. No suspiciou s masses are identified. Epiglottis is normal in configuration. True vocal cords cords are normally situated. Piriform sinuses are well-aerated. Slightly prominent uvula appears unchanged. Lymph Nodes: Lymph node evaluation is limited due to non-contrast technique. No gross pathologic appe aring cervical lymph nodes. Salivary Glands: Unremarkable. Thyroid Gland: Normal Included Intracranial Structures: Grossly unremarkable. Included Orbits: Normal Paranasal Sinuses: Predominantly clear Tympanomastoid Cavities: Normal Vascular Structures: Normal Osseous Structures: Mild to moderate lower cervical degenerative changes. Included Lung Apices: Normal IMPRESSION: No acute or pathologic process identified. Slight prominence of the uvula appears unchanged since rec ent comparative study.
--- NOTE | 2024-04-13 13:29 | P.PN ---
Date of Service: 04/13/24 subjective Tolerated water and ice chips, Review of Systems 10-point ROS is otherwise unremarkable Physical Examination - Physical Exam vital signs Reviewed General: Alert, In no apparent distress, Oriented x3 HEENT: Atraumatic, Normocephalic, PERRLA, Other (+ Dysphagia, Mallenpati IV, no drooling) Respiratory: Clear to auscultation bilaterally, Normal air movement,(no stridor) Cardiovascular: Normal pulses, Regular rate/rhythm, Normal S1 S2 Gastrointestinal: Normal bowel sounds, Soft and benign Musculoskeletal: No swelling, No contractures Integumentary: No breakdown, No significant lesion Neurological: Normal strength at 5/5 x4 extr, Other (abnormal speech) Lymphatics: No axilla or inguinal lymphadenopathy Assessment and Plan - Problems (Diagnosis) (1) Uvular swelling Current Visit: Yes Status: Acute (2) Odynophagia Current Visit: Yes Status: Acute (3) JOSE A (obstructive sleep apnea) Current Visit: Yes Status: Acute - Plan Assessment uvular swelling. odynophagia Obstructive sleep Obese ENT consult Notified of admission Repeat CT, the neck no significant change Steroids, Benadryl, Pepcid, as needed racemic epi antibiotics, Continuous pulse ox, 02 2L NC, CPAP at bedtime, Repeat CT of the neck Chest x-ray that was negative. Full code DVT SCD Diet liquid Disposition Home independent prior Discharge Plan: Home - Advance Directives Does patient have a Living Will: No Does patient have a Durable POA for Healthcare: No - Code Status/Comfort Care Code Status: Full Code Critical Care: No Time Spent Managing Pts Care (In Minutes): 35 <Kendra Lange - Last Filed: 04/13/24 14:42> Patient was seen and examined. Events of the last 24 hours have been noted. Spoke with with AUGILAR regarding patient's clinical picture after evaluating and examining the patient independently. I performed a substantial part of the MDM during this patient's care today. I personally made or approved the documented management plan and acknowledge its risk of complications. I agree with the findings and documentation provided in the AGUILAR's notes. Patient with mild swelling of the uvula. Continue with steroids and antibiotic therapy. Anticipate discharge in a.m.. ENT was consulted. <Christophe Hernández - Last Filed: 04/14/24 04:53>
[2024-04-13] MEDS: DIPHENHYDRAMINE 50 MG/ML VIAL IV PRN (21:04)
--- NOTE | 2024-04-14 09:05 | P.PN ---
Date of Service: 04/14/24 Subjective Dysphonia, dysphagia, increased feeling of post-nasal drainage. Slept well per 's report with nasal biPap Physical Examination - Physical Exam General: Alert, In no apparent distress, Oriented x3 HEENT: Atraumatic, Normocephalic, PERRLA, Other (+ Dysphagia, Mallenpati IV, no drooling), fearful of swallowing Respiratory: Clear to auscultation bilaterally, Normal air movement, Other (no stridor/wheezing) Cardiovascular: Normal pulses, Regular rate/rhythm, Normal S1 S2 Gastrointestinal: Normal bowel sounds, Soft and benign Respiratory: Coughs thick secretions and is able to bring them forward to remove with kleenex Musculoskeletal: No swelling, No contractures Integumentary: No breakdown, No significant lesion Neurological: Normal strength at 5/5 x4 extr, Other (abnormal speech), fearful of swallowing but is maintaining secretions Lymphatics: No axilla or inguinal lymphadenopathy Assessment and Plan - Problems (Diagnosis) (1) Uvular swelling Current Visit: Yes Status: Acute (2) Odynophagia Current Visit: Yes Status: Acute (3) JOSE A (obstructive sleep apnea) Current Visit: Yes Status: Acute - Plan Assessment uvular swelling odynophagia Obstructive sleep Dr. Osorio following Steroids, Benadryl, Pepcid, as needed racemic epi Continuous pulse ox 02 2L NC nasal CPAP at bedtime/prn Repeat CT of the neck - essentially unchanged 04/14/[address] Osorio, she assessed uvula and noted normal structure. Requests MRI, barium swallow, and possible Neurological consultation. She will decide how best to visualize structures further with a flexible laryngoscope. Full code DVT SCD Diet liquid Disposition Home independent prior Discharge Plan: Home - Advance Directives Does patient have a Living Will: No Does patient have a Durable POA for Healthcare: No - Code Status/Comfort Care Code Status: Full Code Critical Care: No
[2024-04-14] MEDS: FOLIC ACID 1 MG in NA CHLORIDE 0.9% 50 ML IV SCH (11:32)
--- NOTE | 2024-04-14 14:34 | RAD REPORT ---
Modified barium swallow exam with speech pathology service HISTORY: dysphonia/dysphagia Fluoroscopy Time: 1.6 minutes IMPRESSION: Please see the speech pathology service report for details. Barium contrast of multiple consistencies was provided the patient orally by the speech pathology dep artment. Fluoroscopic observation was performed during swallowing. The radiologist was not present for the examination. The provided images demonstrate evidence of aspiration. See speech pathology note.
[2024-04-14] MEDS: droPERidol 5 MG/2 ML VIAL IV ONE (14:59)
[2024-04-14] MEDS: AMLODIPINE 5 MG TAB PO ONE (21:17)
[2024-04-14] MEDS: HYDRALAZINE HCL 20 MG/ML VIAL IV PRN (21:33)
--- NOTE | 2024-04-15 06:46 | P.CNS ---
Date of Consult: 04/14/24 Reason for consultation: uvulitis HPI: Patient was seen in the ER on April 10 and with diagnosis of uvulitis and was discharged following medical treatment. He returned on April 12 with persistent symptoms which were not improved. The patient complained primarily of sensation of something blocking the throat with some throat discomfort but not significant pain. He underwent CT imaging that suggested some swelling of the uvula but no evidence of deep neck abscess. Regards to associated history, the patient reported his throat symptoms had been present for approximately a week and had progressed but this partially improved since his hospitalization. The primary team was concerned because he the has had limited p.o. intake and was able to drink about a half a bottle of water but then deferred further p.o. intake due to discomfort and feeling like there was something in his throat. The patient also complains of "sinus drainage" which is worse recently. Prior sinus surgery. No current nasal/sinus medications. The patient denied any trauma of the throat. He denied sucking strongly on anything. He did have some isolated choking episodes occurring 2 or 3 weeks prior and thus were not directly related timewise to the onset of symptoms. He had not ingested any new foods or medication to his knowledge. In regards to the exam finding of septal perforation, the patient denies any prior use of intranasal drugs, no prior nasal surgery, no recollection of any nasal injury. He did have nosebleeds during teen years but does not recall any medical intervention such as aggressive packing or cauterization. No recent or active nosebleeds. Past medical history: Hypertension, sleep apnea with compliant use of nasal CPAP, obesity Social history: No tobacco alcohol or drugs Allergies: No drug allergies Physical exam: Patient is in no acute distress, he is using nasal CPAP mask at the time of my arrival but is awake. After removal of the mask, head neck exam is performed. External ears are symmetric and unremarkable. There is no pain with movement of the pinna. Exam of the canal and eardrum is limited by lack of an otoscope. Eyes are normal, pupils are equal round and reactive. No scleral icterus. Extraocular movements intact. External nose unremarkable. Anterior septal deviation without significant crusting. Oral cavity demonstrates no evidence of trismus, fair dentition, no visible lesions of the buccal mucosa. The tongue appears mobile. There is mild tongue-tie. Mallampati 4. With depression of the tongue, the uvula appears mildly elongated but is not red or edematous or widened. The mucosa overlying the uvula does not appear inflamed at the time of my exam. Minimal tonsil tissue present. Patient's tongue strength appears to be grossly normal as his tongue extrudes midline and and on cranial nerve testing the strength of the tongue appears to be symmetric. His speech demonstrates mild dysarthria with a mild "hot potato" voice and his confirms that the quality of his speech is not consistent with prior baseline but timeline for onset of dysarthria is difficult to pin down but seems to have sided with the onset of his recent symptoms in the last week. Laryngeal exam with mirror is prohibited by severity of gag reflex. Data: CT with contrast x 2 are reviewed in regards to the patient's complaints. The paranasal sinuses appear normal with no evidence of occlusion of the OMC, mucosal thickening or opacification. There is an anterior septal deviation con sistent with his physical exam. An examination of the upper aerodigestive tract, I do not see any areas suspicious for enhancement suggestive of neoplasm. There is no significant fluid collection. No lymphadenopathy. The epiglottis appears sharp and not edematous. Assessment and recommendation: 1. Uvulitis: My exam today, the uvula appears essentially normal but without availability of photodocumentation it is difficult to determine whether there has been true improvement in its appearance. The patient has had different medical providers for each day of his capitalization which limits continuity in regards to assessing exam improvements. Uvulitis commonly occurs via infectious or traumatic causes. Patient has been treated with antibiotics and steroids which may have led to improvement in his condition. 2. Dysarthria: I am much more concerned about the presentation regards to the patient's voice. His basic head neck exam does not reveal any cause for dysarthria, especially as a sudden onset. Hot potato voice can occur in the setting of laryngeal pathology but on his scan there is no suggestion of neoplasm or epiglottic abnormalities including swelling. Other causes of dysarthria can include neurologic issues and I would consider an MBS and MRI with possible neurology consultation. Possible laryngoscopy is also desirable but bedside scope is not available. Will work on options for direct visualization. 3. Sleep apnea: Treated sleep apnea can cause uvular swelling in some patients due to the negative pressure developed in the oral pharynx during apneic episod es. The patient is compliant with home CPAP and should continue use. 4. Septal perforation. This is a new diagnosis which is previously unknown by the patient. In the absence of identifiable cause (such as prior surgery, drug use or confirmed nasal trauma), spontaneous perforation can occur in a number of autoimmune diseases including lupus, rheumatoid, and Nathan's granulomatosis. It can also present as late sequela of syphilis or previously undiagnosed septal hematoma/trauma. Screening testing can include ENA, RF, C ANCA, and RPR with additional testing based on results of screening. Can be performed on an outpatient basis laboratory studies can be initiated if desired by the primary team. 5. Postnasal drainage/sinus complaints: In consideration of the patient's nasal exam and lack of significant sinus abnormality on his CT scan, I suspect that his complaint of postnasal drainage/sinus complaints are related to his dysarthria. In my practice many patients with abnormal laryngeal function complaining of mucus in the throat which they attribute to sinus problems in the absence of sinus disease and it is often related to abnormal swallowing function. I would defer to recommendations for dysarthria in regards to workup of this complaint.
[2024-04-15] MEDS ORDERED: FOLIC ACID 5 MG/ML VIAL IVP SCH (09:00)
[2024-04-15] MEDS: LIDOCAINE HCL/EPINEPHRINE 20 ML MDV ONE (11:17)
[2024-04-15] MEDS: EPINEPHRINE 1 MG/ML VIAL ONE (11:17)
[2024-04-15] MEDS: Ringers Lactate 1,000 ML IV ONE (11:30)
[2024-04-15] MEDS ORDERED: propofoL 200 MG/20 ML VIAL IV ONE (11:42)
[2024-04-15] MEDS ORDERED: ONDANSETRON 4 MG/2 ML VIAL ONE (11:42)
[2024-04-15] MEDS ORDERED: LIDOCAINE 2% MPF 5 ML VIAL ONE (11:42)
[2024-04-15] MEDS ORDERED: FENTANYL CITR 100 MCG/2 ML ONE (11:42)
[2024-04-15] MEDS ORDERED: MIDAZOLAM HCL 2 MG/2 ML INJ ONE (11:42)
[2024-04-15] MEDS ORDERED: ROCURONIUM 50 MG/5 ML VIAL IV ONE (11:47)
[2024-04-15] MEDS: SUCCINYLCHOLINE 20 MG/ML (10 ML) IV ONE (11:53)
--- NOTE | 2024-04-15 13:26 | P.OP ---
Commercial Loan Specialist: NONE,NONE Preoperative diagnosis: Dysarthria, dysphagia and aspiration Postoperative diagnosis: Same Primary procedure: Flexible laryngoscopy with direct visualization/placement of Dobbhoff tube Anesthesia: None Estimated blood loss: None Specimen: None Findings: Pooling of saliva/secretions in bilateral piriform sinus, otherwise unremar Operative Technique: After verbal and written consent, the flexible laryngoscope is passed through the left nostril and the septal perforation is demonstrated. Due to angulation, the camera was removed and placed through the right nostril. The flexible laryngoscope was slowly advanced through the nasal cavity. Other than the clean moderate sized anterior septal perforation, the remainder of the nasal cavity was unremarkable. The inferior meatus and inferior turbinate showed no masses or significant abnormality. The middle meatus and middle turbinate were clear with no evidence of polyps or pus or other abnormality. The sphenoethmoid recess appeared unremarkable. The scope was passed into the nasopharynx. There was no significant adenoid tissue and no evidence of mass or other mucosal abnormality. The scope was then passed to the oropharynx. The nasal surface of the soft palate and uvula was unremarkable. The base of tongue was symmetric with no evidence of masses or asymmetry. The palatine tonsils were not well- visualized. The vallecula was free from any masses or ulcerations. The epiglottis was symmetric with sharp edges and no significant edema or erythema. The true vocal folds appeared normal with no mucosal irregularities. The vocal folds were mobile bilaterally. The subglottis was visualized as were the upper tracheal rings and there was no evidence of stenosis or significant inflammation. The hypopharynx including the piriform sinus demonstrated retained saliva appearing secretions. The mucosal surfaces were initially difficult to visualize. This secretions did not clear even with multiple swallow, hard swallow. The scope was then withdrawn without complication. After additional verbal consent the patient was agreeable for placement of a Dobbhoff tube. The size 10 Maltese tube was passed through the nasal cavity. Once it was within for likely reaching the nasopharynx, the flexible scope was advanced over the Dobbhoff tube for direct visualization. The flexible laryngoscope was advanced to the oropharynx and the Dobbhoff tube was slowly advanced. With swallowing, vocalizing, and intentional cough, the secretions finally cleared from the hypopharynx allowing visualization of the mucosal surface. The tip of the Dobbhoff tube was then carefully positioned lateral to the right arytenoid and slowly advanced through the hypopharynx and into the esophageal introitus. Once the Dobbhoff tube appeared to be in place, the flexible laryngoscope was withdrawn and the Dobbhoff was secured to the nose with tape. Postplacement chest x-ray will be performed to confirm placement. Once the lungs are cleared and the Dobbhoff tube is confirmed to be in the stomach, it can be used immediately for feeding per the primary team. Drain(s): Nasogastric Fluids & blood products: none Transferred to: Recovery Room Condition: Good
--- NOTE | 2024-04-15 14:05 | RAD REPORT ---
EXAM: AP view(s) of the abdomen Abdomen Single View HISTORY: S/P NGT COMPARISON: None FINDINGS: Nonobstructive bowel gas pattern.. Weighted feeding tube tip terminates in the upper stomach. No suspicious calcifications are seen. No acute osseous abnormality. Other: n/a IMPRESSION: Nonobstructive bowel gas pattern. Weighted feeding tube tip terminates in the upper stoma ch.
[2024-04-15] MEDS ORDERED: JEVITY 1.5 CAL LIQUID 1,000 ML BOT RTH SCH (16:00)
--- NOTE | 2024-04-15 19:18 | P.PN ---
Date of Service: 04/15/24 Subjective Pt sitting up at bedside in no distress. Voice sounds stronger and more normal today. Pt agrees and states it is worse when he "gets worked up" Physical Examination - Physical Exam General: Alert, In no apparent distress, Oriented x3 HEENT: Atraumatic, Normocephalic, PERRLA, Other (+ Dysphagia, Mallenpati IV, no drooling), fearful of swallowing Respiratory: Clear to auscultation bilaterally, Normal air movement, Other (no stridor/wheezing) Cardiovascular: Normal pulses, Regular rate/rhythm, Normal S1 S2 Gastrointestinal: Normal bowel sounds, Soft and benign Respiratory: Clear to auscultation bilaterally Musculoskeletal: No swelling, No contractures Integumentary: No breakdown, No significant lesion Neurological: Normal strength at 5/5 x4 extr, Lymphatics: No axilla or inguinal lymphadenopathy Assessment and Plan - Problems (Diagnosis) (1) Uvular swelling Current Visit: Yes Status: Acute (2) Odynophagia Current Visit: Yes Status: Acute (3) JOSE A (obstructive sleep apnea) Current Visit: Yes Status: Acute - Plan Assessment uvular swelling odynophagia Obstructive sleep Dr. Osorio following Steroids, Benadryl, Pepcid, as needed racemic epi - dc'd Continuous pulse ox 02 2L NC nasal CPAP at bedtime/prn Repeat CT of the neck - essentially unchanged 04/14/[address] Osorio, she assessed uvula and noted normal structure. Requests MRI, barium swallow, and possible Neurological consultation. She will decide how best to visualize structures further with a flexible laryngoscope. 04/15/24 Pt failed modified barium swallow, Dr. Li consulted. Pt adamantly refuses NGT. States he wants a feeding tube. Dr. iL will consult Flexible laryngoscope planned for today. 1300 Laryngoscope essentially normal as far as structurally. Dr. Osorio obtained Dobhoff tube placement under direct visualization with patient's consent. Xray evidence of placement obtained and Jevity feedings started. She was able to obtain more history from the patient's Daughter about a recent appointment for ptosis. They described having to tape eyelid open for vision during the day for a while with eventual resolution. Obviously, this raises suspicion for MG. The family/patient were asked to be sure to relay this information to Dr. Crespo when he consults today. Dr. Li will hold off on PEG placement for the time being. Full code DVT SCD Diet liquid Disposition Home independent prior Discharge Plan: Home - Advance Directives Does patient have a Living Will: No Does patient have a Durable POA for Healthcare: No - Code Status/Comfort Care Code Status: Full Code Critical Care: No
[2024-04-15 22:55] VITALS: BMI 40.4
--- NOTE | 2024-04-16 12:43 | P.PN ---
Date of Service: 04/16/24 Subjective Pt sitting up at bedside in no distress. Jevity continues. Blood glucose stable. Awaiting neuro assessment. Physical Examination - Physical Exam General: Alert, In no apparent distress, Oriented x3 HEENT: Atraumatic, Normocephalic, PERRLA, Other (+ Dysphagia, Mallenpati IV, no drooling) Respiratory: Clear to auscultation bilaterally, Normal air movement Cardiovascular: Normal pulses, Regular rate/rhythm, Normal S1 S2 Gastrointestinal: Normal bowel sounds, Soft and benign Respiratory: Clear to auscultation bilaterally Musculoskeletal: No swelling, No contractures Integumentary: No breakdown, No significant lesion Neurological: Normal strength at 5/5 x4 extr, Lymphatics: No axilla or inguinal lymphadenopathy Assessment and Plan - Problems (Diagnosis) (1) Dysarthria Current Visit: Yes Status: Acute (2) Odynophagia Current Visit: Yes Status: Acute (3) JOSE A (obstructive sleep apnea Current Visit: Yes Status: Acute - Plan Assessment dysarthria odynophagia Obstructive sleep 04/14/[address] Osorio, she assessed uvula and noted normal structure. Requests MRI, barium swallow, and possible Neurological consultation. She will decide how best to visualize structures further with a flexible laryngoscope. 04/15/24 Pt failed modified barium swallow, Dr. Li consulted. Pt adamantly refuses NGT. States he wants a feeding tube. Dr. Li will consult Flexible laryngoscope planned for today. 1300 Laryngoscope essentially normal as far as structurally. Dr. Osorio obtained Dobhoff tube placement under direct visualization with patient's consent. Xray evidence of placement obtained and Jevity feedings started. She was able to obtain more history from the patient's Daughter about a recent appointment for ptosis. They described having to tape eyelid open for vision during the day for a while with eventual resolution. Obviously, this raises suspicion for MG. The family/patient were asked to be sure to relay this information to Dr. Crespo when he consults today. Dr. Li will hold off on PEG placement for the time being. 04/16/24 no changes, awaiting neuro eval Full code DVT SCD Diet liquid Disposition Home independent prior Discharge Plan: Home - Advance Directives Does patient have a Living Will: No Does patient have a Durable POA for Healthcare: No - Code Status/Comfort Care Code Status: Full Code Critical Care: No <Krystal Wheat - Last Filed: 04/16/24 12:37> Oropharyngeal dysphagia differential diagnosis myasthenia gravis, brainstem ischemic stroke, tube feeding via Dobbhoff tube, awaiting neurology input <ALLISON Matthews - Last Filed: 04/16/24 13:07>
[2024-04-16] MEDS: DIPHENHYDRAMINE 50 MG/ML VIAL IV ONE (20:13)
--- NOTE | 2024-04-17 00:09 | CON ---
Date of Consultation: 04/16/2024 Reason For Consultation: Consultation called because of dysphagia. History Of Present Illness: Mr. Sykes is a 68-year-old patient with chronic obstructive pulmonary d isease, hypertension, and class 3 obesity, who has had at least a year's worth of progressive difficu lty swallowing thin liquids resulting in coughing. Also family said similarly with ice, he may have coughs. He has had an episode of right eye ptosis that lasted several months resulting in him having to take the right eye open to be able to see. He said that resolved spontaneously. However, the pa archie has had worsening dysarthria with dysphagia and is now to the point where he is unable to prote ct his airway and a barium swallow study earlier today was failed. He now has an NG tube in place. He denies fatigable weakness in the eye such as with upgaze or double vision or fatigable weakness of the arms and legs. He has had some worsening guttural speech and difficulty moving back with stomac h to protect his airway. His workup thus far include a negative head CT scan, no acute ischemic or h emorrhagic changes were identified. Soft tissue neck CT scan showed no acute pathologic abnormalitie s. Laboratory studies showed slightly elevated white blood cell count of 12.0, normal hemoglobin, he matocrit, normal platelets. Neutrophils were 84.1 and sugars range from 116 to 157. Urinalysis is u nremarkable. He does have the acetylcholine receptor antibody panel pending and that is for myasthen ia gravis. 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 Calcium channel antibody DQ4 ordered. He is scheduled to have a PEG tube placed because of the significant dysarthria with dysph agia resulting in aspiration. KUB did show his feeding tube tip terminates in the upper stomach. Past Medical History: As noted above. Allergies: NO KNOWN DRUG ALLERGIES. Medications: Zofran, Apresoline, folic acid, Pepcid, he did receive Decadron and Benadryl. Review of Systems: Progressive dysarthria, dysphagia, history of ptosis as noted and some mild shortness of breath and d ifficulty sleeping at night. He does have sleep apnea, has BMI of 40.4. Physical Examination: Vital Signs: Blood pressure 166/82, pulse 52, respiratory rate 15, temperature 97.5, oxygen saturati on 95%. Weight 298 pounds, height 6 feet, BMI 40.4. General: Mr. Sykes is sitting in a chair beside bed, family at bedside, his daughter and . He has NG tube in place. HEENT: He does appear normocephalic, atraumatic. Sclerae anicteric. Oropharynx pink, moist. Neck: Supple. Chest: Clear. Heart: Regular. Extremities: No significant clubbing, cyanosis, or edema noted. Neuro: He has no ptosis on 1 minute of upgaze, no diplopia. Also, he has symmetric face with equal excursions and smiling. He has no fatigability in the right deltoid muscle after 10 strong efforts a t resistance. He has very brisk reflexes in the lower extremities at 4+ with crossed adductors, 2 be ats of clonus bilaterally, and he has 3+ reflexes at the biceps and triceps. Sensory examination meseret ws no significant deficits. Coordination intact. He will be ambulated with a gait belt and Physical Therapy Service. Assessment: Mr. Maykel Sykes is a 68-year-old patient with obstructive sleep apnea. He has class 3 obesity and hypertension. He now has significant dysarthria, dysphagia with high risk of aspiration and he has failed barium swallow study. He has a myelopathic examination with brisk reflexes to lowe r extremities and crossed adductors. He also has difficulty with labial, lingual, and guttural sound s. His differential diagnosis should include Sena Gehrig disease or amyotrophic lateral sclerosis ulises ng with bulbar myasthenia gravis and bulbar Sena Gehrig disease or amyotrophic lateral sclerosis. Muc h less likely, demyelinating conditions are autoimmune diseases and instabilities. Lupus may still b e considered. Plan: 1. Follow up the myasthenia gravis antibody receptor panel and the panel for Lambert-Eaton myasthenic syndrome. 2. He may benefit from EMG nerve conduction study to help rule out the presence of amyotrophic latera l sclerosis. He did have mild tongue atrophy actually when that was evaluated, which may go along wi th symptoms and again he had poor lingual and guttural sounds more than labial sounds. He should hav e heavy PEG tube to help protect his airway. He was told about being upright when using small sips o f liquids and ice chips and very good oral hygiene to reduce risk of aspiration pneumonia. He may fo llow up in Dr. Crespo's clinic. We will have outpatient EMG nerve conduction study and followup bl ood work that is ordered. HALIMA/ROSA ISELA Voice ID: [id number] Report ID: [id number]
[2024-04-17 11:53] LABS: Absolute Eosinophils 0.1 K/uL (0-0.5); Absolute Lymphocytes (CBC) 1.2 K/uL (0.7-4.9); Absolute Monocytes 0.7 K/uL (0.1-1.3); Absolute Neutrophil 8.7 K/uL (1.8-8.0); Basophils % 0.3 % (0-1.3); Eosinophils % 0.9 % (0-4.4); Hematocrit 44.3 % (39.6-49.0); Hemoglobin 14.9 g/dL (13.6-17.9); Lymphocytes % 11.5 % (15.3-44.8); MCH 28.7 pg (27.0-35.0); MCHC 33.6 g/dL (32.0-36.0); MCV 85.5 fL (80-100); MPV 8.2 fL (7.6-11.3); Monocytes % 6.7 % (3.3-12.3); Neutrophils % 80.6 % (41.7-73.7); Platelets 211 thou/uL (152-406); RBC Red Blood Cell Count 5.18 M/uL (4.33-5.43); Red Cell Distribution Width 14.3 % (12.1-15.2)
[2024-04-17 12:12] LABS: Albumin 3.4 g/dL (3.4-5.0); Albumin/Globulin Ratio 0.9 (1.1-1.8); Anion Gap 6.6 mEq/L (5.0-15.0); Bilirubin Total 0.7 mg/dL (0.2-1.0); Potassium 3.6 mEq/L (3.5-5.1); Protein, Total 7.4 g/dL (6.4-8.2)
[2024-04-17] MEDS: NA CHLORIDE 0.9% 500 ML ONE (15:45)
[2024-04-17] MEDS: SUCCINYLCHOLINE 20 MG/ML (10 ML) IV ONE (17:17)
[2024-04-17] MEDS ORDERED: propofoL 200 MG/20 ML VIAL IV ONE (17:26)
[2024-04-17] MEDS ORDERED: LIDOCAINE 1% MPF 5 ML VIAL ONE ×2 (17:27)
--- NOTE | 2024-04-17 18:05 | P.PN ---
Date of Service: 04/17/24 Subjective Pt sitting up at bedside in no distress. Pt scheduled for PEG today. went to ED and dx with Influenza, will start pt on prophylaxis for flu Physical Examination - Physical Exam General: Alert, In no apparent distress, Oriented x3 HEENT: Atraumatic, Normocephalic, PERRLA, Other (+ Dysphagia, Mallenpati IV, no drooling), dobhoff in place right nare Respiratory: Clear to auscultation bilaterally, Normal air movement Cardiovascular: Normal pulses, Regular rate/rhythm, Normal S1 S2 Gastrointestinal: Normal bowel sounds, Soft and benign Respiratory: Clear to auscultation bilaterally Musculoskeletal: No swelling, No contractures Integumentary: No breakdown, No significant lesion Neurological: Normal strength at 5/5 x4 extr, Lymphatics: No axilla or inguinal lymphadenopathy Assessment and Plan - Problems (Diagnosis) (1) Dysarthria Current Visit: Yes Status: Acute (2) Odynophagia Current Visit: Yes Status: Acute (3) JOSE A (obstructive sleep apnea Current Visit: Yes Status: Acute - Plan Assessment dysarthria odynophagia Obstructive sleep 04/14/[address] Osorio, she assessed uvula and noted normal structure. Requests MRI, barium swallow, and possible Neurological consultation. She will decide how best to visualize structures further with a flexible laryngoscope. 04/15/24 Pt failed modified barium swallow, Dr. Li consulted. Pt adamantly refuses NGT. States he wants a feeding tube. Dr. Li will consult Flexible laryngoscope planned for today. 1300 Laryngoscope essentially normal as far as structurally. Dr. Osorio obtained Dobhoff tube placement under direct visualization with patient's consent. Xray evidence of placement obtained and Jevity feedings started. She was able to obtain more history from the patient's Daughter about a recent appointment for ptosis. They described having to tape eyelid open for vision during the day for a while with eventual resolution. Obviously, this raises suspicion for MG. The family/patient were asked to be sure to relay this information to Dr. Crespo when he consults today. Dr. Li will hold off on PEG placement for the time being. 04/16/24 no changes, awaiting neuro eval 04/17/24 Dr. [place] evaluated Mr. Sykes yesterday afternoon and feels he may have a bulbar palsy, ALS or even a different myasthenic palsy like Eaton Lambert over gravis, antibody testing sent and need for PEG discussed with pt and family last pm. We have reached back out to Dr. Li for the PEG placement and he placed today. Mrs. Sykes was diagnosed with Influenza A this am. We will begin Tamiflu prophylaxis for Mr. Sykes on arrival back from PEG placement. Full code DVT SCD Diet liquid Disposition Home independent prior Discharge Plan: Home - Advance Directives Does patient have a Living Will: No Does patient have a Durable POA for Healthcare: No - Code Status/Comfort Care Code Status: Full Code Critical Care: No
[2024-04-17] MEDS: KETOROLAC 30 MG/ML INJ ONE (18:30)
[2024-04-17] MEDS: OSELTAMIVIR PHOSPHATE 30 MG/5 ML SUSPENSION UD FT SCH (21:05)
[2024-04-18] MEDS ORDERED: JEVITY 1.5 CAL LIQUID 1,000 ML BOT FT SCH (13:50)
[2024-04-18] MEDS: JEVITY 1.5 CAL LIQUID 1,000 ML BOT FT SCH (17:59)
--- NOTE | 2024-04-18 18:36 | P.PN ---
Date of Service: 04/18/24 Subjective Pt sitting up in bed. No dobhoff tube. PEG in place, site healthy, no drainage. started pt on prophylaxis for flu last pm Physical Examination - Physical Exam General: Alert, In no apparent distress, Oriented x3 HEENT: Atraumatic, Normocephalic, PERRLA, Other Respiratory: Clear to auscultation bilaterally, Normal air movement Cardiovascular: Normal pulses, Regular rate/rhythm, Normal S1 S2 Gastrointestinal: Normal bowel sounds, Soft and benign Respiratory: Clear to auscultation bilaterally Musculoskeletal: No swelling, No contractures Integumentary: No breakdown, No significant lesions Neurological: Normal strength at 5/5 x4 extr, Lymphatics: No axilla or inguinal lymphadenopathy Assessment and Plan - Problems (Diagnosis) (1) Dysarthria Current Visit: Yes Status: Acute (2) Odynophagia Current Visit: Yes Status: Acute (3) JOSE A (obstructive sleep apnea Current Visit: Yes Status: Acute - Plan Assessment dysarthria odynophagia Obstructive sleep 04/14/[address] Osorio, she assessed uvula and noted normal structure. Requests MRI, barium swallow, and possible Neurological consultation. She will decide how best to visualize structures further with a flexible laryngoscope. 04/15/24 Pt failed modified barium swallow, Dr. Li consulted. Pt adamantly refuses NGT. States he wants a feeding tube. Dr. Li will consult Flexible laryngoscope planned for today. 1300 Laryngoscope essentially normal as far as structurally. Dr. Osorio obtained Dobhoff tube placement under direct visualization with patient's consent. Xray evidence of placement obtained and Jevity feedings started. She was able to obtain more history from the patient's Daughter about a recent appointment for ptosis. They described having to tape eyelid open for vision during the day for a while with eventual resolution. Obviously, this raises suspicion for MG. The family/patient were asked to be sure to relay this information to Dr. Crespo when he consults today. Dr. Li will hold off on PEG placement for the time being. 04/16/24 no changes, awaiting neuro eval 04/17/24 Dr. Crespo evaluated Mr. Sykes yesterday afternoon and feels he may have a bulbar palsy, ALS or even a different myasthenic palsy like Eaton Lambert over gravis, antibody testing sent and need for PEG discussed with pt and family last pm. We have reached back out to Dr. Li for the PEG placement and he placed today. Mrs. Sykes was diagnosed with Influenza A this am. We will begin Tamiflu prophylaxis for Mr. Sykes on arrival back from PEG placement. 04/18/24 Seen by hydroelectric station operator chief for calorie calculations and CM working on tube feeds and supplies with home health. Mr. Sykes is without complaints today. He is just anxious to start feeds again and get home. We talked about oral care and he voices understanding and is aware Full code DVT SCD Diet liquid Disposition Home independent prior Discharge Plan: Home - Advance Directives Does patient have a Living Will: No Does patient have a Durable POA for Healthcare: No - Code Status/Comfort Care Code Status: Full Code Critical Care: No
[2024-04-19 07:15] LABS: Absolute Eosinophils 0.3 K/uL (0-0.5); Absolute Monocytes 0.7 K/uL (0.1-1.3); Absolute Neutrophil 12.2 K/uL (1.8-8.0); Basophils % 0.2 % (0-1.3); Eosinophils % 2.3 % (0-4.4); Hematocrit 44.5 % (39.6-49.0); Hemoglobin 14.6 g/dL (13.6-17.9); Lymphocytes % 6.8 % (15.3-44.8); MCH 28.5 pg (27.0-35.0); MCHC 32.7 g/dL (32.0-36.0); MCV 87.1 fL (80-100); MPV 8.7 fL (7.6-11.3); Monocytes % 4.8 % (3.3-12.3); Neutrophils % 85.9 % (41.7-73.7); Nucleated Red Blood Cells % 0.1 % (0-0); Platelets 195 thou/uL (152-406); RBC Red Blood Cell Count 5.12 M/uL (4.33-5.43); Red Cell Distribution Width 14.1 % (12.1-15.2)
[2024-04-19 07:31] LABS: Albumin 3.2 g/dL (3.4-5.0); Albumin/Globulin Ratio 0.8 (1.1-1.8); Bilirubin Total 0.9 mg/dL (0.2-1.0); Globulin 4.1 g/dL (2.3-3.5); Protein, Total 7.3 g/dL (6.4-8.2)
[2024-04-19 08:48] LABS: Platelet Estimate ADEQ; White Blood Cell Scan OK (OK)
[2024-04-19 08:49] LABS: Blood Morphology Comment NOT SEEN (NOT SEEN)
--- NOTE | 2024-04-19 11:19 | P.DS ---
Admission Date: 04/12/24 Discharge Date: 04/19/24 Disposition: DC HOME/HOME HEALTH CARE Reason for Admission: Uvular Swelling Consultations: Dr. Osorio - ENT Dr. Crespo - Neurology Dr. Li - General Surgery Brief History of Present Illness: 68 year old male with past medical history of HTN, Sleep Apnea; presents to the emergency room of trouble swallowing. He reports being seen in ED twice for similar symptoms for throat swelling. He reports unable to swallow meds for allergic reaction. He reports being seen and diagnosed with uvulitis, given steroids and antibiotics. He reports being exposed to allergens and has symptoms since exposure. He denies any known allergens. He reports only tolerating liquids, unable to tolerate pills, or food. Ct of the neck shows Mild enlargement of the uvula may indicate mild inflammation. No reported stridor, shortness of breath, drooling, anxiety, or fever, cough, or chest pain. Plan to admit for dysphagia, uvular swelling with ENT Dr Osorio to consult, notified of admission and plan. Hospital Course: Mr. Sykes was unable to swallow water but was able to tolerate his own secretions and had no choking episodes. Dr. Osorio saw him and discussed a flexible laryngoscope evaluation. We encouraged him to complete the MRI ordered and he was completely opposed to having it done even with anxiolytics. As he had not been able to swallow for a number of days, we encouraged him to consider a nasogastric tube for nutrition. He also declined this tube and opted for a PEG tube. Dr. Li was consulted for placement. Mr. Sykes was evaluated by [facility] with a modified barium swallow study and found not to be safe for oral intake. Dr. Osorio took him down for the larygoscope and found structures to be normal in appearance without masses or findings for symptoms. She was able to get his consent to place a dobhoff tube under direct visualization. The tube position was verified and continuous feedings were started. At the time of the scope, she was also able to get some additional history from family regarding a prior episode of ptosis that lasted for several weeks -months that necessitated taping of the right eyelid up for sight. This spontaneously resolved. Antibiotics and steroids started prior to admission stopped. Dr. Crespo was asked to evaluate Mr. Sykes and some antibody studies were sent for myasthenia. Upon Dr. Crespo's evaluation, he felt Mr. Sykes's ability to swallow will not recover quickly or at all and suggested PEG placement. He would like to evaluate him as an outpatient with EMG studies and other labs for bulbar palsy such as ALS or a different type of myasthenia like Eaton Lambert syndrome. Dr. Li was re-consulted and placed the PEG tube and removed the dobhoff. Unfortunately, Mrs. Sykes became suddenly ill and was diagnosed with influenza on the day of surgery. Mr. Sykes was started on prophylactic dose Tamiflu. PEG tube feedings began the evening of placement and a Supervisor [employer] consult was placed for caloric calculations. Mr. Sykes will be discharged with home health for tube feedings per manager administrative calculations and case management has worked to have the solution delivered. He will need to call Dr. Crespo's office next week to make an appointment for follow up. Vital Signs/Physical Exam: Temp Pulse Resp BP Pulse Ox 97.7 F 63 14 144/66 H 97 04/19/24 08:00 04/19/24 08:00 04/19/24 08:00 04/19/24 08:00 04/19/24 08:00 General: Alert, In no apparent distress, Oriented x3, Cooperative, Obese HEENT: Atraumatic, Normocephalic Neck: Supple, 2+ carotid pulse no bruit Respiratory: Normal air movement Cardiovascular: Normal pulses, Regular rate/rhythm, Normal S1 S2 Capillary refill: <2 Seconds Gastrointestinal: Soft and benign, Other (peg tube to upper left quad) Musculoskeletal: No clubbing, No swelling Integumentary: No rashes, No significant lesion Neurological: Other (speech improved, gait normal, pt swallowing own secretions well without choking/cough/gag) Lymphatics: No axilla or inguinal lymphadenopathy External genitalia: Deferred Rectal: Deferred Laboratory Data at Discharge: WBC 14.30 thou/uL (4.3-10.9) H 04/19/24 06:24 Hgb 14.6 g/dL (13.6-17.9) 04/19/24 06:24 Hct 44.5 % (39.6-49.0) 04/19/24 06:24 Plt Count 195 thou/uL (152-406) 04/19/24 06:24 Sodium 140 mEq/L (136-145) 04/19/24 06:24 Potassium 4.0 mEq/L (3.5-5.1) 04/19/24 06:24 BUN 22 mg/dL (7-18) H 04/19/24 06:24 Creatinine 1.23 mg/dL (0.70-1.30) 04/19/24 06:24 Glucose 120 mg/dL (74-106) H 04/19/24 06:24 Magnesium 2.5 mg/dL (1.6-2.4) H 04/13/24 05:00 Total Bilirubin 0.9 mg/dL (0.2-1.0) 04/19/24 06:24 AST 22 U/L (15-37) 04/19/24 06:24 ALT 62 U/L (16-61) H 04/19/24 06:24 Alkaline Phosphatase 80 U/L (45-117) 04/19/24 06:24 Home Medications: NK [No Home Meds] 04/12/24 Physician Discharge Instructions: Home Health acceptance confirmed: [facility] [phone] fax [phone] Diet: per PEG Activity: Ad antonette Followup: NONE,NONE [Primary Care Provider] -
--- NOTE | 2024-04-19 15:36 | P.PN ---
Date of Service: 04/19/24 Subjective Pt sitting up in bed. Tube feed in progress. PEG in place, site healthy, no drainage. Physical Examination - Physical Exam General: Alert, In no apparent distress, Oriented x3 HEENT: Atraumatic, Normocephalic, PERRLA, Other Respiratory: Clear to auscultation bilaterally, Normal air movement Cardiovascular: Normal pulses, Regular rate/rhythm, Normal S1 S2 Gastrointestinal: Normal bowel sounds, Soft and benign Respiratory: Clear to auscultation bilaterally Musculoskeletal: No swelling, No contractures Integumentary: No breakdown, No significant lesions Neurological: Normal strength at 5/5 x4 extr, Lymphatics: No axilla or inguinal lymphadenopathy Assessment and Plan - Problems (Diagnosis) (1) Dysarthria Current Visit: Yes Status: Acute (2) Odynophagia Current Visit: Yes Status: Acute (3) JOSE A (obstructive sleep apnea Current Visit: Yes Status: Acute - Plan Assessment dysarthria odynophagia Obstructive sleep 04/14/[address] Osorio, she assessed uvula and noted normal structure. Requests MRI, barium swallow, and possible Neurological consultation. She will decide how best to visualize structures further with a flexible laryngoscope. 04/15/24 Pt failed modified barium swallow, Dr. Li consulted. Pt adamantly refuses NGT. States he wants a feeding tube. Dr. Li will consult Flexible laryngoscope planned for today. 1300 Laryngoscope essentially normal as far as structurally. Dr. Osorio obtained Dobhoff tube placement under direct visualization with patient's consent. Xray evidence of placement obtained and Jevity feedings started. She was able to obtain more history from the patient's Daughter about a recent appointment for ptosis. They described having to tape eyelid open for vision during the day for a while with eventual resolution. Obviously, this raises suspicion for MG. The family/patient were asked to be sure to relay this information to Dr. Crespo when he consults today. Dr. Li will hold off on PEG placement for the time being. 04/16/24 no changes, awaiting neuro eval 04/17/24 Dr. Crespo evaluated Mr. Sykes yesterday afternoon and feels he may have a bulbar palsy, ALS or even a different myasthenic palsy like Eaton Lambert over gravis, antibody testing sent and need for PEG discussed with pt and family last pm. We have reached back out to Dr. Li for the PEG placement and he placed today. Mrs. Sykes was diagnosed with Influenza A this am. We will begin Tamiflu prophylaxis for Mr. Sykes on arrival back from PEG placement. 04/18/24 Seen by radio antenna installer for calorie calculations and CM working on tube feeds and supplies with home health. Mr. Sykes is without complaints today. He is just anxious to start feeds again and get home. We talked about oral care and he voices understanding and is aware 04/19/24 awaiting nutrition set up by [facility] - phoned her at [phone] and she stated she would return call. Ila, rep, called and informed pt and family that nutrition would not be delivered until Sunday. Full code DVT SCD Diet liquid Disposition Home independent prior Discharge Plan: Home - Advance Directives Does patient have a Living Will: No Does patient have a Durable POA for Healthcare: No - Code Status/Comfort Care Code Status: Full Code Critical Care: No
[2024-04-20 05:24] LABS: Absolute Eosinophils 0.4 K/uL (0-0.5); Absolute Lymphocytes (CBC) 1.6 K/uL (0.7-4.9); Absolute Monocytes 0.9 K/uL (0.1-1.3); Absolute Neutrophil 9.6 K/uL (1.8-8.0); Basophils % 0.4 % (0-1.3); Eosinophils % 3.5 % (0-4.4); Hematocrit 41.6 % (39.6-49.0); Hemoglobin 14.1 g/dL (13.6-17.9); Lymphocytes % 12.4 % (15.3-44.8); MCH 29.3 pg (27.0-35.0); MCV 86.2 fL (80-100); MPV 9.4 fL (7.6-11.3); Monocytes % 7.3 % (3.3-12.3); Neutrophils % 76.4 % (41.7-73.7); Nucleated Red Blood Cells % 0.1 % (0-0); Platelets 185 thou/uL (152-406); RBC Red Blood Cell Count 4.82 M/uL (4.33-5.43); Red Cell Distribution Width 14.3 % (12.1-15.2)
[2024-04-20 06:13] LABS: Albumin/Globulin Ratio 0.8 (1.1-1.8); Anion Gap 6.3 mEq/L (5.0-15.0); Bilirubin Total 0.9 mg/dL (0.2-1.0); Globulin 3.9 g/dL (2.3-3.5); Potassium 4.3 mEq/L (3.5-5.1); Protein, Total 6.9 g/dL (6.4-8.2)
--- NOTE | 2024-04-20 11:11 | P.PN ---
Date of Service: 04/20/24 Subjective Pt sitting up at bedside. Friend visiting. PEG in place, site healthy, no drainage. Physical Examination - Physical Exam General: Alert, In no apparent distress, Oriented x3 HEENT: Atraumatic, Normocephalic, PERRLA, Other Respiratory: Clear to auscultation bilaterally, Normal air movement Cardiovascular: Normal pulses, Regular rate/rhythm, Normal S1 S2 Gastrointestinal: Normal bowel sounds, Soft and benign Respiratory: Clear to auscultation bilaterally Musculoskeletal: No swelling, No contractures Integumentary: No breakdown, No significant lesions Neurological: Normal strength at 5/5 x4 extr, Lymphatics: No axilla or inguinal lymphadenopathy Assessment and Plan - Problems (Diagnosis) (1) Dysarthria Current Visit: Yes Status: Acute (2) Odynophagia Current Visit: Yes Status: Acute (3) JOSE A (obstructive sleep apnea Current Visit: Yes Status: Acute - Plan Assessment dysarthria odynophagia Obstructive sleep 04/14/[address] Osorio, she assessed uvula and noted normal structure. Requests MRI, barium swallow, and possible Neurological consultation. She will decide how best to visualize structures further with a flexible laryngoscope. 04/15/24 Pt failed modified barium swallow, Dr. Li consulted. Pt adamantly refuses NGT. States he wants a feeding tube. Dr. Li will consult Flexible laryngoscope planned for today. 1300 Laryngoscope essentially normal as far as structurally. Dr. Osorio obtained Dobhoff tube placement under direct visualization with patient's consent. Xray evidence of placement obtained and Jevity feedings started. She was able to obtain more history from the patient's Daughter about a recent appointment for karolyn gaspar. They described having to tape eyelid open for vision during the day for a while with eventual resolution. Obviously, this raises suspicion for MG. The family/patient were asked to be sure to relay this information to Dr. Crespo when he consults today. Dr. Li will hold off on PEG placement for the time being. 04/16/24 no changes, awaiting neuro eval 04/17/24 Dr. Crespo evaluated Mr. Sykes yesterday afternoon and feels he may have a bulbar palsy, ALS or even a different myasthenic palsy like Eaton Lambert over gravis, antibody testing sent and need for PEG discussed with pt and family last pm. We have reached back out to Dr. Li for the PEG placement and he placed today. Mrs. Sykes was diagnosed with Influenza A this am. We will begin Tamiflu prophylaxis for Mr. Sykes on arrival back from PEG placement. 04/18/24 Seen by executive meeting manager for calorie calculations and CM working on tube feeds and supplies with home health. Mr. Sykes is without complaints today. He is just anxious to start feeds again and get home. We talked about oral care and he voices understanding and is aware 04/19/24 awaiting nutrition set up by [facility] - phoned her at [phone] and she stated she would return call. Ila, rep, called and informed pt and family that nutrition would not be delivered until Sunday. 04/19/24 no complaints, awaiting delivery of nutrition/supplies. Will dc iv today. Full code DVT SCD Diet liquid Disposition Home independent prior Discharge Plan: Home - Advance Directives Does patient have a Living Will: No Does patient have a Durable POA for Healthcare: No - Code Status/Comfort Care Code Status: Full Code Critical Care: No
[2024-04-21 04:33] LABS: Absolute Basophils 0.1 K/uL (0-0.5); Absolute Eosinophils 0.4 K/uL (0-0.5); Absolute Lymphocytes (CBC) 1.7 K/uL (0.7-4.9); Absolute Monocytes 0.9 K/uL (0.1-1.3); Absolute Neutrophil 8.5 K/uL (1.8-8.0); Basophils % 0.7 % (0-1.3); Eosinophils % 3.4 % (0-4.4); Hematocrit 43.2 % (39.6-49.0); Hemoglobin 14.3 g/dL (13.6-17.9); Lymphocytes % 14.4 % (15.3-44.8); MCH 28.4 pg (27.0-35.0); MCHC 33.2 g/dL (32.0-36.0); MCV 85.5 fL (80-100); MPV 9.2 fL (7.6-11.3); Monocytes % 7.7 % (3.3-12.3); Neutrophils % 73.8 % (41.7-73.7); Platelets 180 thou/uL (152-406); RBC Red Blood Cell Count 5.05 M/uL (4.33-5.43); Red Cell Distribution Width 14.6 % (12.1-15.2)
[2024-04-21 04:53] VITALS: O2SAT 96
[2024-04-21 04:53] LABS: Albumin 2.9 g/dL (3.4-5.0); Albumin/Globulin Ratio 0.7 (1.1-1.8); Anion Gap 5.8 mEq/L (5.0-15.0); Bilirubin Total 0.8 mg/dL (0.2-1.0); Potassium 3.8 mEq/L (3.5-5.1); Protein, Total 6.9 g/dL (6.4-8.2)
[2024-04-21] MEDS: POTASSIUM 25 MEQ EFFERV TAB PO ONE (09:00)
[2024-04-21 13:44] VITALS: BP 127/65; TEMP 98.2
== END 2024-04-21 16:28 | disposition home health service (06) | DRG 91 ==
LOC: ER 13:18 → ERHOLD 17:57 → 2ND 18:45 → UNDODISIN 04-18 15:35
PROVIDERS: ADMIT Hospitalist; ATTEND Hospitalist
PROC: 5A09557 Assistance with Respiratory Ventilation, Greater than 96 Consecutive Hours, Continuous Positive Airway Pressure (ICD-10-PCS; 2024-04-12)
PROC: 0CJS8ZZ Inspection of Larynx, Via Natural or Artificial Opening Endoscopic (ICD-10-PCS; 2024-04-15)
PROC: 0DH68UZ Insertion of Feeding Device into Stomach, Via Natural or Artificial Opening Endoscopic (ICD-10-PCS; 2024-04-15)
PROC: 0DB98ZX Excision of Duodenum, Via Natural or Artificial Opening Endoscopic, Diagnostic (ICD-10-PCS; principal; 2024-04-17 15:30)
PROC: 0DB68ZX Excision of Stomach, Via Natural or Artificial Opening Endoscopic, Diagnostic (ICD-10-PCS; 2024-04-17 15:30)
DX: R47.1 Dysarthria and anarthria (principal); K29.51 Unspecified chronic gastritis with bleeding; K12.2 Cellulitis and abscess of mouth; Z68.41 Body mass index [BMI] 40.0-44.9, adult; E66.01 Morbid (severe) obesity due to excess calories; R13.12 Dysphagia, oropharyngeal phase; K29.80 Duodenitis without bleeding; I10 Essential (primary) hypertension; G47.33 Obstructive sleep apnea (adult) (pediatric); J10.1 Influenza due to other identified influenza virus with other respiratory manifestations; J44.9 Chronic obstructive pulmonary disease, unspecified; K14.8 Other diseases of tongue
CPT/HCPCS: 36415; 70450; 70491; 74018; 74230; 80048; 80053; 81003; 82947; 83519; 83735; 85025; 86015; 88305; 88312; 92611; 94660; 94760; 96365; 96375; 99285; J0171; J0295; J0360; J1100; J1200; J1790; J2003; J2250; J2405; J2704; J3010; J7040; J7042; J7120; Q9967

== ENCOUNTER 2024-05-16 10:44 | Day surgery (SDC) | payer OTHER ==
--- OUTSIDE RECORDS SUMMARY | 2024-05-16 10:47 | XMS REPORT | Continuity of Care Document ---
Author Name Unknown Address [address] [facility] [address] [place] [address] [facility] Address [address] [facility] [address] [place] [address] Care Team Providers Care Portfolio Architect Name Role Phone PCP, PATIENT DOES NOT HAVE A Primary Care Physic regan Unavailable ZIYAD MONTENEGRO Attending Clinician Unavailable MD GILL Attending Clinician UnavailSEBASTIÁN Quiroga Attending Clinician Massiel vailable [id number] Attending Clinician Unavailable Abhijeet Arellano MD Attending Clinician OJ BARTON Attending Clinician Unavailable Oj Barton MD Attending Clinician [phone] OJ BARTON Admitting Clinician Unavailable Payers Payer Name Policy Type Policy Number Effective Date Expirati on Date Source [facility] SIMPLE SECURE OPEN (PPO) 7 [id number] 2024 00:00:00 [facility] PPO 5 [id number] 2024 00:00:00 [facility] [id number] 2022 00:00:00 Problems Condition Name Condition Details Condition Category Status Onset Date Resolution Date Last Treatment Date Treating Clinician Comments Source DM type 2 with diabetic mixed hyperlipid emia (multi HCC) DM type 2 with diabetic mixed hyperlipid emia (multi HCC) Disease Active 05-01 00:00: 00 Anaya Sesurjitold - Externa l MG (myastheni a gravis) (multi HCC) MG (myastheni a gravis) (multi HCC) Disease Active 05-01 00:00: 00 Anaya Soriaa wilberto Hospital discharge follow-up Hospital discharge follow-up Disease Active 04-23 00:00: 00 Anaya ladd Uses feeding tube Uses feeding tube Disease Active 04-23 00:00: 00 Anaya Soriaa wilberto JOSE A on CPAP JOSE A on CPAP Disease Active Anaya Soriaa wilberto Allergies, Adverse Reactions, Alerts Allergy Name Allergy Type Status Severity Reaction(s) Onset Date Inactive Date Treating Clinician Comments Source NO KNOWN ALLERGIE S Drug Class Active [facility] Social History Social Habit Start Date Stop Date Quantity Comments Source Sexual orientation Emily sotomayor Allan - External History of Occupation Anaya Lemus - External Tobacco use and exposure 2024-04-23 00:00:00 2024-04-23 00:00:00 Smokeless tobacco non-user Anaya Lemus - External Alcoholic beverage intake 2024-04-23 00:00:00 2024-04-23 00:00:00 Lifetime non-drinker (finding) Anaya Lemus - External History of Social function 2024-04-23 00:00:00 2024-04-23 00:00:00 Anaya Lemus - External Education 2024-04-23 00:00:00 2024-04-23 00:00:00 15 Anaya Lemus - External Sex 2024-04-21 11:17:23 2024-04-21 11:17:23 Male (finding) Anaya Lemus - External Exposure to SARS-CoV-2 (event) 2022-05-18 00:00:00 2022-05-28 13:00:00 Not sure [facility] Sex assigned at 1955 00:00:00 1955 00:00:00 Anaya Lemus - External Smoking Status Start Date Stop Date Source Tobacco smoking consumption unknown [facility] Never smoked tobacco Anaya Lemus - External Medications Ordered Medication Name Filled Medication Name Start Date Stop Date Current Medication? Ordering Clinician Indication Dosage Frequency Signature (SIG) Comments Components Source Blood Glucose Monitoring Suppl (Blood Glucose Monitor System) w/Device does not apply Kit 05-01 00:00: 00 Yes [id number] 3 Check BS BID. Anaya ladd Glucose Blood in vitro Strip 05-01 00:00: 00 Yes [id number] 3 1{each} Q.5D 1 each by other route 2 times daily. Anaya ladd Lancets 30G does not apply Misc 05-01 00:00: 00 Yes [id number] 3 Check BS BID. Anaya ladd Nutritional Supplements (Nutren 2.0) oral Liquid 04-23 00:00: 00 Yes [id number] 250mL Q4H 250 mL by PEG tube route every 4 (four) hours. Anaya ladd iopamidol (ISOVUE 370-500 mL) injection 70 mL 05-28 19:28: 00 05-28 19:28 :00 No [id number] 70mL 70 mL, Intravenou s, ONCE, 1 dose, On 05/28/22 at 1445, Routine [facility] ketorolac 10 mg tablet 05-28 00:00: 00 Yes [id number] 10mg Take 1 tablet by mouth every 6 (six) hours as needed for Pain (scale 4-6) or Pain (scale 7-10). [facility] hyoscyamine sulfate (LEVSIN/SL) 0.125 mg sublingual tablet 05-28 00:00: [id number] 2 tablets under the tongue every 6 (six) hours as needed (Abdominal pain or cramping). [facility] tamsulosin 0.4 mg 24 hr capsule 05-28 00:00: 00 Yes [id number] .4mg Take 1 capsule by mouth at bedtime. [facility] acetaminoph en (TYLENOL ARTHRITIS PAIN) 650 mg CR tablet 05-28 00:00: 00 Yes [id number] 650mg Take 1 tablet by mouth every 8 (eight) hours as needed for Pain. [facility] ondansetron (ZOFRAN) 8 mg tablet 05-28 00:00: 00 Yes [id number] 8mg Take 1 tablet by mouth every 8 (eight) hours. [facility] Vital Signs Vital Name Observation Time Observation Value Comments Lashell barrios Body height 2024-05-09 16:02:00 182.9 cm Alana ey Seybold - External Body weight 2024-05-09 16:02:00 132.904 kg Alana ey Seybold - External BMI 2024-05-09 16:02:00 39.74 kg/m2 Alana ey Seybold - External Systolic blood pressure 2024-04-23 17:30:00 124 mm[Hg] Anaya Estevezybo ld - External Diastolic blood pressure 2024-04-23 17:30:00 76 mm[Hg] Anaya Estevezybo ld - External Heart rate 2024-04-23 17:30:00 86 /min Tere doss Seybold - External Body temperature 2024-04-23 17:30:00 37.06 Opal Anaya Estevezybold - External Respiratory rate 2024-04-23 17:30:00 20 /min Anaya Estevezybold - External Body height 2024-04-23 17:30:00 182.9 cm Alana ey Seybold - External Body weight 2024-04-23 17:30:00 138.166 kg Alana ey Seybold - External BMI 2024-04-23 17:30:00 41.31 kg/m2 Alana jiang Seybold - External Oxygen saturation in Arterial blood by Pulse oximetry 2024-04-23 17:30:00 97 /min Anaya Baezo ld - External Systolic blood pressure 2022-05-28 21:00:00 133 mm[Hg] [facility] Diastolic blood pressure 2022-05-28 21:00:00 68 mm[Hg] [facility] Heart rate 2022-05-28 21:00:00 75 /min [facility] Respiratory rate 2022-05-28 21:00:00 17 /min [facility] Oxygen saturation in Arterial blood by Pulse oximetry 2022-05-28 21:00:00 95 /min [facility] Body temperature 2022-05-28 17:47:00 36.94 Opal [facility] Body weight 2022-05-28 17:47:[address] [facility] Procedures Procedure Date / Time Performed Performing Clinicia n Source CT ABDOMEN PELVIS W CONTRAST 2022-05-28 19:35:00 Oj Barton [facility] COMP. METABOLIC PANEL (95179) 2022-05-28 17:58:00 Oj Barton [facility] CBC WITH DIFF 2022-05-28 17:58:00 Oj Barton [facility] URINALYSIS 2022-05-28 17:58:[address] [facility] NOTICE OF PRIVACY PRACTICES 2022-05-28 17:49:20 Doctor Unassigned, Zuehl [facility] CONSENT/REFUSAL FOR DIAGNOSIS AND TREATMENT 2022-05-28 17:44:45 Doctor Unassigned, Zuehl [facility] Encounters Start Date/Time End Date/Time Encounter Type Admission Type Attending [facility] Facility Care Department Encounter ID Source 2024-05-29 11:00:00 2024-05-29 11:00:00 Outpatient ZIYAD MONTENEGRO [id number] [facility] 2024-05-21 11:00:00 2024-05-21 11:00:00 Outpatient ZIYAD MONTENEGRO [id number] [facility] 2024-05-12 00:00:00 2024-05-12 00:00:00 Outpatient MD ANAYA ARIZMENDI [id number] Anaya [facility] 2024-05-12 00:00:00 2024-05-12 00:00:00 Outpatient ANAYA FORREST [id number] [facility] 2024-05-09 10:00:00 2024-05-09 10:00:00 Outpatient SEBASTIÁN HOLLIS [id number] Anaya [facility] 2024-05-02 00:00:00 2024-05-02 00:00:00 Outpatient ANAYA FORREST [id number] [facility] 2024-05-01 00:00:00 2024-05-01 00:00:00 Outpatient ZIYAD MONTENEGRO [id number] Anaya Lemus 2024-05-01 00:00:00 2024-05-01 00:00:00 Outpatient PREZAZIYAD Lobo [id number] Anaya Lemus 2024-04-30 08:00:00 2024-04-30 08:00:00 Outpatient ESY523 ANAYA FORREST [id number] Anaya Lemus 2024-04-30 00:00:00 2024-04-30 00:00:00 Outpatient MD ANAYA ARIZMENDI [id number] Anaya Lemus 2024-04-24 00:00:00 2024-04-24 00:00:00 Outpatient PREZIYAD ARREAGA ANAYA FORREST [id number] Anaya Lemus 2024-04-23 11:30:00 2024-04-23 11:30:00 Outpatient PREZIYAD ARREAGA ANAYA [id number] Anaya Lemus 2024-04-23 00:00:00 2024-04-23 00:00:00 Outpatient PREZAZIYAD Lobo ANAYA [id number] Anaya Lemus 2022-05-29 00:00:00 2022-05-29 00:00:00 [facility][id number] [facility] 2022-05-28 12:48:00 2022-05-28 17:02:00 Emergency X OJ BARTON [facility] ERT [id number] [facility] 2022-05-28 12:48:00 2022-05-28 17:02:00 Emergency Oj Barton [facility] ..[id number] [facility] Results Test Description Test Time Test Comments Results Result Co mments Source [facility] [id number] 18:16:57* Test Item Value Reference Range Interpretation Comme nts WBC (test code = 6690-2) 14.13 See_Comment H [Automated message] The system which generated this result transmitted reference range: 4.20 - 10.70 10*3/?L. The reference range was not used to interpret this result as normal/abnormal. RBC (test code = 789-8) 4.79 See_Comment [Automated message] The system which generated this result transmitted reference range: 4.26 - 5.52 10*6/?L. The reference range was not used to interpret this result as normal/abnormal. HGB (test code = 718-7) 13.9 g/dL 12.2-16.4 HCT (test code = 4544-3) 41.7 % 38.4-49.3 MCV (test code = 787-2) 87.1 fL 81.7-95.6 MCH (test code = 785-6) 29.0 pg 26.1-32.7 MCHC (test code = 786-4) 33.3 g/dL 31.2-35.0 RDW-SD (test code = 77647-7) 41.8 fL 38.5-51.6 RDW-CV (test code = 788-0) 13.1 % 12.1-15.4 PLT (test code = 777-3) 235 See_Comment [Automated message] The system which generated this result transmitted reference range: 150 - 328 10*3/?L. The reference range was not used to interpret this result as normal/abnormal. MPV (test code = 76803-4) 9.8 fL 9.8-13.0 NRBC/100 WBC (test code = 3878535553) 0.0 See_Comment [Automated message] The system which generated this result transmitted reference range: 0.0 - 10.0 /100 WBCs. The reference range was not used to interpret this result as normal/abnormal. NRBC x10^3 (test code = 8224657723) See_Comment [Automated message] The system which generated this result transmitted reference range: 10*3/?L. The reference range was not used to interpret this result as normal/abnormal. GRAN MAT (NEUT) % (test code = 770-8) 81.5 % IMM GRAN % (test code = 8189183945) 0.90 % LYMPH % (test code = 736-9) 9.6 % MONO % (test code = 5905-5) 7.1 % EOS % (test code = 713-8) 0.6 % BASO % (test code = 706-2) 0.3 % GRAN MAT x10^3(ANC) (test code = 5446159636) 11.52 10*3/uL 1.99-6.95 H IMM GRAN x10^3 (test code = 3026019066) 0.13 10*3/uL 0.00-0.06 H LYMPH x10^3 (test code = 731-0) 1.36 10*3/uL 1.09-3.23 MONO x10^3 (test code = 742-7) 1.00 10*3/uL 0.36-1.02 EOS x10^3 (test code = 711-2) 0.08 10*3/uL 0.06-0.53 BASO x10^3 (test code = 704-7) 0.04 10*3/uL 0.01-0.09 Lab Interpretation (test code = 37923-9) Abnormal [facility] Notes Date/Time Note Provider Source 2024-04-23 11:34:33 Chief Complaint Patient presents with Hospital F/U Patient went to the hospital due to not being able to swallow Mushtaq Driver MA [facility]
--- NOTE | 2024-05-16 11:34 | RAD REPORT ---
EXAM:ENTEROSTOMY TUBE CHECK W/CONTR HISTORY: peg tube check with gastrograffin COMPARISON: None FINDINGS/IMPRESSION: Hcc Coders image shows nonobstructive bowel gas pattern. Note is made of bilateral ca lcifications likely stones. Contrast was injected via existing feeding tube and is seen to fill the stomach. This would suggest appropriate placement. Study is limited by lack of a lateral projection.
--- NOTE | 2024-05-16 13:18 | RAD REPORT ---
EXAMINATION: CT Abdomen Pelvis Wo Contrast CLINICAL INDICATION: Male, 68 years old. peg tube check, please flush gastrograffin in tube TECHNIQUE: CT abdomen and pelvis was performed, without IV contrast, as per department protocol. Axia l, sagittal and coronal reconstructions were obtained. One or more of the following dose reduction techniques were used: Automated exposure control, adjustment of the mA and kV according to the patien t size, and iterative reconstruction. Unless otherwise specified, incidental findings do not require dedicated imaging follow-up. COMPARISON: Abdomen radiographs 05/16/2024. CT chest 05/16/2024 FINDINGS: The lack of intravenous contrast limits the sensitivity of this exam for evaluation of solid visceral organs, vascular structures, and retroperitoneum. LOWER CHEST: The visualized lung bases are clear. LIVER: Normal in size and contour. Small hypoattenuating lesions throughout the liver, largest in the subdiaphragmatic dome measuring 1.7 cm, suggesting small cysts, stable in appearance. BILIARY SYSTEM: No suspicious abnormalities. SPLEEN: Normal size. No focal lesion. PANCREAS: No mass, ductal dilation, or florina-pancreatic fluid. ADRENALS: Normal; no mass. KIDNEYS AND URETERS: Normal size and contour. No hydronephrosis. Excreted contrast opacifying the uri nary tracts limits evaluation for calculi. No evidence of filling defects along the opacified segments URINARY BLADDER: Decompressed limiting evaluation.. GASTROINTESTINAL TRACT: Gastrostomy tube does not appear to terminate within the stomach. Contrast op acifying the acute opacifies the stomach, with no evidence of extraluminal contrast. Focal wall thickening along the descending/sigmoid junction, with adjacent fat stranding. No appreciable extralu bibi gas or fluid collections. No evidence of bowel obstruction, significant free fluid, free air or abscess. APPENDIX: Normal appendix. LYMPH NODES: No lymphadenopathy. MUSCULOSKELETAL: No acute or suspicious osseous abnormality. ADDITIONAL FINDINGS: None. IMPRESSION: Gastrostomy tube does not appear to terminate within the stomach. Contrast opacifying the acute opaci fies the stomach, with no evidence of extraluminal contrast. Findings of acute uncomplicated diverticulitis at the junction of the descending and sigmoid colon. Other stable findings as above. THIS REPORT CONTAINS FINDINGS THAT MAY BE CRITICAL TO PATIENT CARE. The findings were verbally commun icated via telephone to Angel Bonner on 05/16/2024 1:15 PM.
--- NOTE | 2024-05-16 13:22 | ER ---
Nurse's Notes [facility] Name: Maykel Sykes Age: 68 yrs Sex: Male : 1955 Arrival Date: 05/16/2024 Time: 10:44 Bed 7 Private MD: Diagnosis: Mechanical complication of PEG tube;Uncomplicated diverticulitis Presentation: 05/16 11:04 Chief complaint: Sent by Dr. Li for PEG tube placement check. Coronavirus screen: hb At this time, the client does not indicate any symptoms associated with coronavirus-19. Ebola Screen: No symptoms or risks identified at this time. Initial Sepsis Screen: Does the patient meet any 2 criteria? No. Patient's initial sepsis screen is negative. Does the patient have a suspected source of infection? No. Patient's initial sepsis screen is negative. Risk Assessment: Do you want to hurt yourself or someone else? Patient reports no desire to harm self or others. Onset of symptoms was May 16, 2024. 11:04 Method Of Arrival: Ambulatory hb 11:04 Acuity: MEHDI 3 hb Historical: - Allergies: 11:01 No Known Allergies; ph - PMHx: 11: Sleep Apnea; ph - Immunization history:: Adult Immunizations unknown. - Infectious Disease History:: Denies. - Social history:: Smoking status: Patient denies any tobacco usage or history of. - Family history:: not pertinent. Screenin:02 [facility] ED Fall Risk Assessment (Adult) History of falling in the last 3 months, ph including since admission No falls in past 3 months (0 pts) Confusion or Disorientation No (0 pts) Intoxicated or Sedated No (0 pts) Impaired Gait No (0 pts) Mobility Assist Device Used No (0 pt) Altered Elimination No (0 pt) Score/Fall Risk Level 0 - 2 = Low Risk Oriented to surroundings, Maintained a safe environment, Hourly rounding (assess needs \T\ fall precautionary measures) done. Abuse screen: Denies threats or abuse. Denies injuries from another. Nutritional screening: No deficits noted. Tuberculosis screening: No symptoms or risk factors identified. Assessment: 11:31 General: Appears in no apparent distress. Behavior is calm, cooperative. Pain: Denies ph pain. Neuro: Level of Consciousness is awake, alert, obeys commands, Oriented to person, place, time, situation. Respiratory: Airway is patent Respiratory effort is even, unlabored, Respiratory pattern is regular, symmetrical. GI: PEG tube in place. Derm: Skin is pink, warm \T\ dry. Vital Signs: 11:04 BP 145 / 73; Pulse 77; Resp 16; Temp 97.8; Pulse Ox 100% on R/A; Pain 1/10; hb 12:30 BP 138 / 78; Pulse 76; Resp 18; Temp 97.8; Pulse Ox 99% on R/A; ph 13:29 Weight 135.17 kg; Height 6 ft. 0 in. ; ph 13:29 Body Mass Index 40.42 (135.17 kg, 182.88 cm) ph 11:04 Pain Scale: Adult hb ED Course: 10:46 Patient arrived in ED. mr 10:49 Angel Bonner MD is Attending Physician. rt 11:01 Blanche Cali RN is Primary Nurse. ph 11:05 Triage completed. hb 11:06 Arm band placed on. hb 11:28 ENTEROSTOMY TUBE CHECK W/CONTR In Process Unspecified. EDMS 11:32 Patient has correct armband on for positive identification. ph 12:41 CT Abd/Pelvis - Without Contrast In Process Unspecified. EDMS 13:21 Darwin Li MD is Hospitalizing Provider. rt 13:28 Inserted saline lock: 22 gauge in left antecubital area, using aseptic technique. ph Flushed with 10 mL NS. 13:29 No provider procedures requiring assistance completed. Patient admitted, IV remains in ph place. Administered Medications: No medications were administered Medication: 13:29 VIS not applicable for this client. ph Outcome: 13:22 Decision to Hospitalize by Provider. rt 13:29 Admitted to OR accompanied by nurse, family with patient, via wheelchair, ph 13:29 Condition: good 13:29 Instructed on the need for admit, 13:29 Patient left the ED. ph Signatures: Dispatcher [employer] EDMS Iwona Treviño, Reg Reg mr Blanche Cali, DANNY RN Nany Lewis, DANNY RN Angel Bonner MD MD rt
--- NOTE | 2024-05-16 13:22 | EDPHYS ---
Physician Documentation [facility] Name: Maykel Sykes Age: 68 yrs Sex: Male : 1955 Arrival Date: 05/16/2024 Time: 10:44 Bed 7 Private MD: ED Physician Angel Bonner HPI: 05/16 13:37 This 68 yrs old Male presents to ER via Ambulatory with complaints of G tube problem. rt 13:37 Patient presents to the ED with possible dislodgment of the PEG tube. Reports of lower rt abdominal pain. States that has been difficult to instill fluids into it. Had a CT scan that showed that it was possibly dislodged. Denies other acute complaints, symptoms are moderate in severity, no other aggravating or alleviating factors.. Historical: - Allergies: 11: No Known Allergies; ph - PMHx: 11: Sleep Apnea; ph - Immunization history:: Adult Immunizations unknown. - Infectious Disease History:: Denies. - Social history:: Smoking status: Patient denies any tobacco usage or history of. - Family history:: not pertinent. ROS: 13:37 Constitutional: Negative for fever, chills, and weight loss, Cardiovascular: Negative rt for chest pain, palpitations, and edema, Respiratory: Negative for shortness of breath, cough, wheezing, and pleuritic chest pain, MS/Extremity: Negative for injury and deformity, Skin: Negative for injury, rash, and discoloration, Neuro: Negative for headache, weakness, numbness, tingling, and seizure, 13:37 Abdomen/GI: Positive for abdominal pain, Negative for vomiting, Exam: 13:37 Constitutional: This is a well developed, well nourished patient who is awake, alert, rt and in no acute distress. Head/Face: Normocephalic, atraumatic. Chest/axilla: Normal chest wall appearance and motion. Nontender with no deformity. No lesions are appreciated. Cardiovascular: Regular rate and rhythm with a normal S1 and S2. No gallops, murmurs, or rubs. Normal PMI, no JVD. No pulse deficits. Respiratory: Lungs have equal breath sounds bilaterally, clear to auscultation and percussion. No rales, rhonchi or wheezes noted. No increased work of breathing, no retractions or nasal flaring. MS/ Extremity: Pulses equal, no cyanosis. Neurovascular intact. Full, normal range of motion. 13:37 Abdomen/GI: PEG tube in place, no surrounding tenderness, no leakage, mild lower quadrant tenderness, Vital Signs: 11:04 BP 145 / 73; Pulse 77; Resp 16; Temp 97.8; Pulse Ox 100% on R/A; Pain 1/10; hb 12:30 BP 138 / 78; Pulse 76; Resp 18; Temp 97.8; Pulse Ox 99% on R/A; ph 13:29 Weight 135.17 kg; Height 6 ft. 0 in. ; ph 13:29 Body Mass Index 40.42 (135.17 kg, 182.88 cm) ph 11:04 Pain Scale: Adult hb MDM: 10:59 Medical Screening Exam initiated rt 13:37 Differential Diagnosis PEG tube dislodgment, diverticular disease. Data reviewed: vital rt signs, nurses notes, radiologic studies. Management of patient was discussed with the following: Ed Case Manager: Discussed with Dr. Li, will take patient to the operating room, discharge following that. Request that I write prescription for Cipro Flagyl, these related to the patient.. Independent interpretation of the following test(s) in the Emergency Department CT Scan: My interpretation is No contrast extravasation seen on my interpretation of CT scan images. Care significantly affected by the following chronic conditions: Myasthenia gravis. Counseling: I had a detailed discussion with the patient and/or guardian regarding the historical points, exam findings, and any diagnostic results supporting the discharge/admit diagnosis, radiology results. 05/16 11:28 Order name: ENTEROSTOMY TUBE CHECK W/CONTR; Complete Time: 11:35 EDMS 05/16 12:02 Order name: CT Abd/Pelvis - Without Contrast; Complete Time: 13:19 rt Administered Medications: No medications were administered Disposition Summary: 05/16/24 13:22 Hospitalization Ordered Notes: Hospitalization Status: Observation rt Provider: Darwin Li rt Location: Operating Room rt Condition: Stable rt Problem: new rt Symptoms: are unchanged rt Bed/Room Type: Standard rt Room Assignment: rt Diagnosis - Mechanical complication of PEG tube rt - Uncomplicated diverticulitis rt Discharge Instructions: - Discharge Summary Sheet ty Forms: - Medication Reconciliation Form rt - Leadership Thank You Letter rt - SBAR form ty Prescriptions: - Augmentin 875-125 mg Oral Tablet - take 1 tablet ORAL route every 12 hours for 10 days; 20 tablet; Refills: 0, rt Product Selection Permitted - Cipro 500 mg Oral Tablet - take 1 tablet ORAL route every 12 hours for 10 days; 20 tablet; Refills: 0, rt Product Selection Permitted - Flagyl 500 mg Oral Tablet - take 1 tablet ORAL route every 8 hours for 10 days; 30 tablet; Refills: 0, rt Product Selection Permitted Signatures: Dispatcher [employer] EDBlanche Perez RN RN ph Nany Lewis RN RN Angel Bonner MD MD rt Corrections: (The following items were deleted from the chart) 11:28 11:01 Abdomen 1 View+RAD.RAD.BRZ ordered. EDMS EDMS 12:02 12:02 Abdomen Pelvis Wo Con+CT.RAD.BRZ ordered. EDMS EDMS
[2024-05-16] MEDS: Ringers Lactate 1,000 ML IV ONE (13:40)
[2024-05-16] MEDS ORDERED: LIDOCAINE 1% MPF 5 ML VIAL ONE (15:04)
[2024-05-16] MEDS ORDERED: propofoL 200 MG/20 ML VIAL IV ONE (15:04)
[2024-05-16] MEDS ORDERED: GLYCOPYRROLATE 0.2 MG/ML SYR ONE (15:04)
[2024-05-16] MEDS ORDERED: MIDAZOLAM HCL 2 MG/2 ML INJ ONE (15:19)
[2024-05-16 16:50] VITALS: O2SAT 100
[2024-05-16 16:51] VITALS: BP 122/62; TEMP 98.4
== END 2024-05-16 16:35 | disposition home or self-care (01) ==
LOC: ER 10:44 → DS 14:46
PROVIDERS: ATTEND Surgery
PROC: 0D20XUZ Change Feeding Device in Upper Intestinal Tract, External Approach (ICD-10-PCS; principal; 2024-05-16 15:00)
DX: K94.23 Gastrostomy malfunction (principal); K57.92 Diverticulitis of intestine, part unspecified, without perforation or abscess without bleeding
CPT/HCPCS: 74176; 49465; 99285; 43246; J2704; J2003; J2250; J7120